=== PATIENT | male | born 1965 | race Caucasian/White ===

== ENCOUNTER 2017-05-23 18:58 | Inpatient (IN) | payer OTHER ==
[2017-05-23] VITALS (7 sets, daily range): BP systolic 129–151; BP diastolic 74–105; PULSE 70–88; RESP 16–18; TEMP 98–98.7; O2SAT 93–100
[~2017-05-23] VITALS: Ht 177.8 cm; Wt 82.5 kg
[2017-05-23] MEDS ORDERED: NITROGLYCERIN 0.4 MG SL 25 TABS/BTL SL STA (19:04)
[2017-05-23] MEDS ORDERED: ASPIRIN 81 MG CHEW TAB PO STA (19:04)
[2017-05-23] MEDS ORDERED: SODIUM CHLOR 0.9% 1000 ML INJ 1,000 ML IV ONE (19:04)
[2017-05-23] MEDS ORDERED: HEPARIN SODIUM - IV 10,000 UNITS/10 ML VIAL IV STA (19:04)
[2017-05-23] MEDS ORDERED: NITROGLYCERIN-DEXTROSE INJ 250 ML IV SCH (19:15)
[2017-05-23] MEDS ORDERED: SODIUM CHLORIDE 0.9% FLUSH 10 ML FLUSH IVF PRN (19:15)
--- NOTE | 2017-05-23 19:22 | RADRPT ---
EXAM DATE/TIME: 05/23/2017 19:05 [place] COMPARISON: No previous studies available for comparison. INDICATIONS : Stemi Alert MEDICAL HISTORY : Unobtainable SURGICAL HISTORY : Unobtainable ENCOUNTER: Initial ACUITY: 1 day PAIN SCORE: Non-responsive. LOCATION: Bilateral chest FINDINGS: A single view of the chest demonstrates the lungs to be symmetrically aerated without evidence of mas s, infiltrate or effusion. The cardiomediastinal contours are unremarkable. Osseous structures are intact. CONCLUSION: Lungs are clear. Kevin Guillen MD on May 23, 2017 at 19:20 Board Certified Radiologist. This report was verified electronically.
[2017-05-23] MEDS ORDERED: IOHEXOL 350 MG/ML 50 ML BTL (for Cath Lab) OTHER ONE (19:25)
[2017-05-23 19:29] LABS: I-STAT POTASSIUM 3.9 MMOL/L (3.5-4.9)
[2017-05-23] MEDS ORDERED: HEPARIN-NS/PF INJ 500 ML ONE ×2 (19:34→19:51)
[2017-05-23] MEDS ORDERED: HEPARIN SODIUM - IV 10,000 UNITS/10 ML VIAL ONE (19:35)
[2017-05-23] MEDS ORDERED: MIDAZOLAM HCL 2 MG/2 ML VIAL ONE (19:35)
[2017-05-23] MEDS ORDERED: BIVALIRUDIN 250 MG VIAL ONE (19:36)
[2017-05-23] MEDS ORDERED: NITROGLYCERIN INJ 5 ML ONE (19:36)
[2017-05-23 19:46] LABS: AUTOMATED NEUTROPHIL # 2.6 TH/MM3 (1.8-7.7); BASOPHIL # 0.1 TH/MM3 (0-0.2); BASOPHIL % 0.6 % (0.0-2.0); EOSINOPHIL # 0.1 TH/MM3 (0-0.4); EOSINOPHIL % 1.2 % (0.0-4.0); HEMATOCRIT 41.2 % (39.0-51.0); LYMPH % 64.1 % (9.0-44.0); LYMPHOCYTE # 5.4 TH/MM3 (1.0-4.8); MEAN CELL VOLUME 91.6 FL (80.0-100.0); MEAN CORPUSCULAR HEMOGLOBIN 30.1 PG (27.0-34.0); MEAN CORPUSCULAR HGB CONC 32.9 % (32.0-36.0); MONO % 2.8 % (0.0-8.0); NEUT % 31.3 % (16.0-70.0); PLATELET COUNT 304 TH/MM3 (150-450); WHITE BLOOD COUNT 8.4 TH/MM3 (4.0-11.0)
[2017-05-23 19:49] LABS: MAGNESIUM 2.2 MG/DL (1.5-2.5)
[2017-05-23 19:50] LABS: APTT (PATIENT) 21.1 SEC (24.3-30.1); PROTHROMBIN TIME - PATIENT 10.8 SEC (9.8-11.6)
[2017-05-23 19:51] LABS: HEMO FLAGS AUTO DIFF
--- NOTE | 2017-05-23 20:13 | PD ---
HPI Chief Complaint: STEMI Alert Time Seen by Provider: 19:03 Travel History International Travel<30 days: No Contact w/Intl Traveler<30days: No Traveled to known affect area: No History of Present Illness HPI This is a 52-year-old man who presents to the emergency department after witnessed collapse. He was at a movie theater where he collapsed convulsions. EMS was called for seizures. On fire department arrival physician bystander on scene stated patient had no pulse and CPR was started. Fire department on arrival had V. fib on the monitor. He was shocked twice with fire department. On [facility] arrival patient had return of spontaneous circulation. Patient awoke in route. He still mildly confused. He endorses confusion, denies any chest pain initial evaluation. History Past Medical History Narrative Medical Diabetes Tetanus Vaccination: > 5 Years Influenza Vaccination: No Social History Alcohol Use: Yes (OCCASIONAL BEER APPROXIMATELY 1 EVERY MONTH) Tobacco Use: No (SEE ABOVE) Allergies-Medications (Allergen,Severity, Reaction): Coded Allergies: Penicillin (Verified Allergy, Severe, 05/23/17) Reported Meds & Prescriptions Reported Meds & Active Scripts Active Active Prescriptions or Reported Medications Unobtainable Review of Systems Except as stated in HPI: all other systems reviewed are Neg Physical Exam Narrative GENERAL: Ill-appearing 52-year-old man, marked diaphoresis, confusion. SKIN: Marked diaphoresis. HEAD: Atraumatic. Normocephalic. EYES: Pupils equal and round. No scleral icterus. No injection or drainage. ENT: No nasal bleeding or discharge. Mucous membranes pink and moist. NECK: Trachea midline. No JVD. CARDIOVASCULAR: Regular rate and rhythm. No murmur appreciated. RESPIRATORY: Anxious with mild tachypnea. Coarse breath sounds. GASTROINTESTINAL: Abdomen soft, non-tender, nondistended. Hepatic and splenic margins not palpable. MUSCULOSKELETAL: No obvious deformities. No clubbing. No cyanosis. No edema. NEUROLOGICAL: Awake and alert. Mild confusion. No obvious cranial nerve deficits. Motor grossly within normal limits. Normal speech. Data Data Last Documented VS Vital Signs Date Time Temp Pulse Resp B/P Pulse Ox O2 Delivery O2 Flow Rate FiO2 05/23/17 19:27 88 18 141/83 100 Non-Rebreather 15 05/23/17 18:59 98.7 Orders Troponin I (05/23/17 19:04) Ckmb (Isoenzyme) Profile (05/23/17 19:04) Complete Blood Count With Diff (05/23/17 19:04) I-Stat Profile (05/23/17 19:04) I-Stat Creatinine (05/23/17 19:04) Calcium (05/23/17 19:04) Magnesium (Mg) (05/23/17 19:04) Prothrombin Time / Inr (Pt) (05/23/17 19:04) Act Partial Throm Time (Ptt) (05/23/17 19:04) B-Type Natriuretic Peptide (05/23/17 19:04) Chest, Single Ap (05/23/17 19:04) Electrocardiogram (05/23/17 19:04) Oxygen Administration (05/23/17 19:04) Iv Access Insert/Monitor (05/23/17 19:04) Oximetry (05/23/17 19:04) Sodium Chlor 0.9% 1000 Ml Inj (Ns 1000 M (05/23/17 19:04) Sodium Chloride 0.9% Flush (Ns Flush) (05/23/17 19:15) Aspirin Chew (Aspirin Chew) (05/23/17 19:04) Nitroglycerin Sl (Nitrostat Sl) (05/23/17 19:04) Nitroglycerin-Dextrose Inj (Nitroglyceri (05/23/17 19:15) Heparin Inj (Heparin Inj) (05/23/17 19:04) Heparin-Ns/Pf Inj (Heparin-Ns/Pf Inj) (05/23/17 19:34) Midazolam Inj (Versed Inj) (05/23/17 19:35) Fentanyl Inj (Fentanyl Inj) (05/23/17 19:35) Cardiac Catheterization (05/23/17 ) Heparin Inj (Heparin Inj) (05/23/17 19:35) Nitroglycerin Inj (Nitroglycerin Inj) (05/23/17 19:36) Bivalirudin Inj (Angiomax Inj) (05/23/17 19:36) Admit Order (Ed Use Only) (05/23/17 ) Labs Laboratory Tests Test 05/23/17 19:00 White Blood Count 8.4 TH/MM3 Red Blood Count 4.50 MIL/MM3 Hemoglobin 13.6 GM/DL Bedside Hemoglobin 13.9 G/DL Hematocrit 41.2 % Bedside Hematocrit 41.0 % Mean Corpuscular Volume 91.6 FL Mean Corpuscular Hemoglobin 30.1 PG Mean Corpuscular Hemoglobin 32.9 % Concent Red Cell Distribution Width 14.0 % Platelet Count 304 TH/MM3 Mean Platelet Volume 7.9 FL Neutrophils (%) (Auto) 31.3 % Lymphocytes (%) (Auto) 64.1 % Monocytes (%) (Auto) 2.8 % Eosinophils (%) (Auto) 1.2 % Basophils (%) (Auto) 0.6 % Neutrophils # (Auto) 2.6 TH/MM3 Lymphocytes # (Auto) 5.4 TH/MM3 Monocytes # (Auto) 0.2 TH/MM3 Eosinophils # (Auto) 0.1 TH/MM3 Basophils # (Auto) 0.1 TH/MM3 CBC Comment AUTO DIFF Prothrombin Time 10.8 SEC Prothromb Time International 1.0 RATIO Ratio Activated Partial 21.1 SEC Thromboplast Time Bedside Sodium 138 MMOL/L Bedside Potassium 3.9 MMOL/L Bedside Chloride 106 MMOL/L Bedside Blood Urea Nitrogen 25 MG/DL Bedside Creatinine 1.1 MG/DL Bedside Glucose 268 MG/DL Calcium Level 8.1 MG/DL Magnesium Level 2.2 MG/DL Total Creatine Kinase 86 U/L Troponin I 0.10 NG/ML MDM Medical Decision Making Medical Screen Exam Complete: Yes Emergency Medical Condition: Yes Interpretation(s) My review of EKG: Normal sinus rhythm at a rate of 92, slightly leftward axis, large amount of anterior precordial ST elevations with some reciprocal lateral depression suggestive of ST elevation AL. Differential Diagnosis ST elevation AL, cardiomyopathy, seizure, primary arrhythmia, other Narrative Course Medical decision making Is a 52-year-old man who presents to the emergency department following cardiac arrest in the field. Primary V. fib arrest. EKG suggestive ST elevation AL. STEMI alert was called. I spoke with Dr. Herrmann. Patient was taken to the Upsetting Machine Operator. Because it was after hours, accompanied patient to the Upsetting Machine Operator until the arrival the sheet tailer. Critical Care Narrative Aggregate critical care time was 45 minutes. Time to perform other separately billable procedures was not included in the critical care time. My time did not include minutes spent treating any other patients simultaneously or on activities that did not directly contribute to the patient's treatment. The services I provided to this patient were to treat and/or prevent clinically significant deterioration that could result in: , disability, recurrent arrhythmia, recurrent cardiac arrest, unrecognized AL. I provided critical care services requiring my management, as noted below: Chart data review, documentation time, medication orders and management, vital sign assessments/reviewing monitor data, ordering and reviewing lab tests, ordering and interpreting/reviewing x-rays and diagnostic studies, care of the patient and discussion of the patient with the admitting physicians. I also accompanied the patient to the Upsetting Machine Operator suite awaiting the arrival the sheet tailer. Diagnosis Primary Impression: STEMI (ST elevation myocardial infarction) Admitting Information Admitting Physician Requests: Admit Scripts Unable to Obtain Active Prescriptions or Reported Meds Celio Rivero MD May 23, 2017 20:13
--- NOTE | 2017-05-23 20:14 | CATHPROC ---
[facility] HIS Report Study Information Study Number Admission Scheduled Start Study Start [id number] May 23 2017 6:58PM 05/23/2017 May 23 2017 7:38PM [place] [facility] Cardiac Catheterization Admit Source Facility Department Emergency department [facility] - Dietitian Chief Physician and Clinical Staff Initial Hilton Miller Hogshead Inspector Annabelle Yeh,RN Hogshead InspectorJesus Valentin,CATIE Recorder Stan Rivas,RT(R) Scrub Kelley eBnson,ELECTRO MECHANICAL ASSEMBLER TECH2 Procedures Performed Procedure Location (Site) Vessel Name Coronary Angiograms LCA Left Coronary Coronary Angiograms RCA Right Coronary L Heart Cath LV Gram-hand inj. LV LV Ventricle Equipment Time Chrome Plater Helper Description Size Mfg Part Number Used/Scraped COPILOT VALVE, BLEEDBACK [id number] 19:47 [employer] Used CONTROL *[id number] PERCLOSE, PRO GLIDE CLOSER 20:00 [employer] FR 6 [address] *[id number] Used DEVICE TRANSDUCER, TRUWAVE [id number] 19:40 DELEON SPENCE * Used W/STOCKCOCK *[id number] MPIS-502-10.0- INTRODUCER SET, 19:40 [employer]. FR 5 SC-NT-U-SST Used MICROPUNCTURE, STIFFENED *[id number] MPIS-502-10.0- INTRODUCER SET, 19:44 [employer]. FR 5 SC-NT-U-SST Used MICROPUNCTURE, STIFFENED *[id number] *[id number] 19:40 [employer] INDUSTRIES PACK, CCL CUSTOM * Used *[id number] 19:48 MEDTRONIC/AVE EBU 3.5 Z2 GUIDE CATHETER FR 6 Used *[id number] 19:51 [employer], S.A. MEDICAL SHEATH, FR6.5 PRELUDE 11CM FR 6.5 038ACT Used *[id number] 19:40 [employer], S.A. MEDICAL WIRE, 3MMJ .035 180CM 180CM Used *[id number] 19:40 NAMIC MANIFOLD, 4 PORT * Used *[id number] 19:40 NYCOMED OMNIPAQUE, 350 MG, 150ML 150ML [id number] Used [id number] 19:40 [employer] MED[employer] BLANKET,WARM AIR CCL * Used *[id number] 19:47 TERUMO MEDICAL SHEATH, FR6 TERUMO (10CM) FR 6 Used *[id number] WIRE, RUNTHROUGH NS FLOPPY [id number] 19:50 [employer]UM[employer] MEDICAL 180CM Used .014 180CM *[id number] Equipment Model, Serial, Lot Number and Expiration Data Description Model Number Serial Number Lot Number Expiration Date INTRODUCER SET, [id number] 04-07-2020 MICROPUNCTURE, STIFFENED History: Allergies Allergy Reaction Penicillin History: Risk Factors Family History of Hypertension Dyslipidemia Previous GA Previous Heart Failure Premature CAD No No No No No Prior Valve Prior PCI Prior CABG Surgery No No No Cerebrovascular Peripheral Artery Chronic Lung On Dialysis Diabetes Diabetes Therapy Disease Disease Disease No No No No Yes Oral History: Stress Tests Stress or Imaging Studies Performed No History: Other Current Smoker Method Quit Packs a Day Years Used Pack Years No Cigarettes 10 Years Ago 1 10 10 Labs Hgb (g/dl) Hct (%) 11.60-17.00 35.00-51.00 13.9 41 Glucose (mg/dl) BUN (mg/dl) Creatinine (mg/dl) BUN:Creatinine (1:x) 74.00-106.00 7.00-18.00 0.50-1.30 10.00-20.00 268 25 1.1 22.7 Na (meq/l) K (meq/l) Cl (meq/l) 136.00-145.00 3.50-5.10 98.00-107.00 138 3.9 106 CPK-MB (ng/ML) 0.50-3.60 Not Drawn Medication Medication Total Dose (Bolus/Oral) Medication Total Dosage/Unit 1% XYLOCAINE 20 mL FENTANYL 50 mcg VERSED 2 mg Medications (Bolus/Oral) Medication Time Given Dosage/Unit Administered By Reason FENTANYL 05/23/2017 7:44:43 PM 50 mcg Herrmann-Oumar, Hilton 50 mcg FENTANYL given in lab by Herrmann-Oumar, Hilton in Left Antecubital via Peripheral IV. 1% XYLOCAINE 05/23/2017 7:45:05 PM 20 mL Herrmann-Oumar, Hilton 20 mL 1% XYLOCAINE given in lab by Herrmann-Oumar, Hilton in Right Groin via Subcutaneous. VERSED 05/23/2017 8:09:07 PM 2 mg Herrmann-Oumar, Hilton 2 mg VERSED given in lab by Herrmann-Oumar, Hilton in Left Antecubital via Peripheral IV. Medication (Drip) Medication Time Given Dosage/Unit Concentration/Unit Diluent (ml) Solution IV Solutions 05/23/2017 7:40:45 PM 0 mL (IV) 500 NaCl .9 Patient arrived on IV Solutions in Left Antecubital via Peripheral IV. Pump/Drip Flow = 20 ml/hr usin g NaCl .9. NITROGLYCERIN DRIP 05/23/2017 7:42:31 PM 15 mcg/min 50 mg 250 D5W Patient arrived on 15 mcg/min NITROGLYCERIN DRIP in Right Antecubital via Peripheral IV. Pump/Drip Fl ow = 4.5 ml/hr using D5W with a concentration of 50 mg in 250 ml. Initial Case Assessment Cardiovascular HR Rhythm NIBP Chest Pain 73 Irregular 148/87 2 Edema Present Skin color Skin None Normal Warm Dry Circulatory - Right Pulses Dorsalis Pedis Femoral 3 3 Scale (0,1,2,3,4,d) Circulatory - Left Pulses Dorsalis Pedis Femoral 3 3 Scale (0,1,2,3,4,d) Neurological State Oriented to time-place- Alert Moves all extremities person Respiration - General Respiration Rate SpO2 (%) O2 (lpm) (B/min) 19 98 15 Final Case Assessment Cardiovascular HR Rhythm NIBP Chest Pain 77 Sinus 135/77 0 Edema Present Skin color Skin None Normal Warm Dry Circulatory - Right Pulses Dorsalis Pedis Femoral 3 3 Scale (0,1,2,3,4,d) Circulatory - Left Pulses Dorsalis Pedis Femoral 3 3 Scale (0,1,2,3,4,d) Neurological State Oriented to time-place- Alert Moves all extremities person Respiration - General Respiration Rate SpO2 (%) O2 (lpm) (B/min) 16 93 0 Chronological Log Time Study Chronological Log 19:25:40 Patient arrived via Bed. 19:35:38 MD arrived. Vitals capture started with the following parameters, Patient=Adult, Interval=5 min, Initial Pr tslorw=835 mmHg, 19:38:24 Deflation Rate=5 mmHg, Cuff placed on Right Arm 19:38:50 HR=75 bpm, QDRG=423/87 mmhg, SpO2=97.0 %, Resp=19 B/min, Pain=2, Naseem=10, Serrano=2 19:39:16 Patient Name, D.O.B, / Armband Verified By R.N. 19:39:17 Consent signed by the physician and the patient and verified by the Dietitian Chief staff. 19:39:18 Pre-op and post- op instructions given; patient acknowledges understanding of instructions. 19:39:19 Verbal Stimulation=2 Physical Stimulation=2 Airway=2 Respiration=2 TOTAL=8. (0=absent, 1=li mited, 2=present) 19:39:20 Presedation assessment performed by Dietitian Chief RN. 19:39:28 Patient has been NPO for More than 6Hrs. 19:39:28 Skin Breakdown- none per patient. 19:40:39 Patient Warmer Placed on the Table. 19:40:42 James Prominences Protected 19:40:43 A # 18 IV was noted in the Antecubital (left). Grade = 0 19:40:45 Patient arrived on IV Solutions in Left Antecubital via Peripheral IV. Pump/Drip Flow = 20 ml/hr using NaCl .9. 19:40:46 History and physical on the chart or being dictated. Assessment: Initial Case, HR=73 BPM, Rhythm=Irregular, VFVJ=266/87 mmhg, Chest Pain=2, Edema=No ne, Color=Normal, Skin = Warm, Dry Right Pulses: Hector Ped=3, Femoral=3 19:40:47 Left Pulses: Hector Ped=3, Femoral=3 Neurological: State=Alert, Ox3, JOHNSON Respiration: Resp=19 B/min, SpO2=98 %, O2=15 lpm 19:41:39 Bilateral groins prepped with 2% chlorhexidine, and with a 3 min. waiting time. 19:41:59 A # 18 IV was noted in the Antecubital (right). Grade = 0 Patient arrived on 15 mcg/min NITROGLYCERIN DRIP in Right Antecubital via Peripheral IV. Pump/D rip Flow = 4.5 19:42:31 ml/hr using D5W with a concentration of 50 mg in 250 ml. 19:43:12 HR=73 bpm, OQYY=530/81 mmhg, SpO2=97.0 %, Resp=13 B/min, Pain=2, Naseem=10, Serrano=2 Time Out. Correct patient, correct procedure,correct physician, ,power injector loaded or not l oaded with contrast with 19:44:25 surgical team present. Time Out Concurred by MD, individual staff and PILE DRIVING NOZZLEMAN in procedure 19:44:26 Case Start 19:44:42 Nitro off. 19:44:43 50 mcg FENTANYL given in lab by Tere, Hilton in Left Antecubital via Peripheral IV. 19:45:05 20 mL 1% XYLOCAINE given in lab by Tere, Hilton in Right Groin via Subcutaneous. 19:46:26 Pressure channel 1 zeroed. 19:46:27 Access site was Right Femoral Artery. 19:47:07 A sheath was advanced into the Fem Art (right) using the Percutaneous technique. A JR 4.0 INFINITI CATHETER FR 5 was advanced over a wire. OMNIPAQUE, 350 MG, 150ML 150ML was us ed for 19:47:52 injections. Recorded Pressure: LV, HR=73, Condition=Condition 1 19:48:08 (Left Ventricle) LV 125/8/21 19:48:13 HR=71 bpm, USAA=740/83 mmhg, SpO2=97.0 %, Resp=11 B/min, Pain=2, Naseem=10, Serrano=2 19:48:29 The LV was manually injected with 8 cc's and visualized. OMNIPAQUE, 350 MG, 150ML 150ML use d. Recorded Pressure: LV, Ao, HR=73, Condition=Condition 1 19:48:50 (Left Ventricle) LV 127/7/20, (Aorta) Ao 127/72/99 19:49:29 The RCA was injected and visualized at various angles. OMNIPAQUE, 350 MG, 150ML 150ML used . 19:49:52 Catheter was removed A EBU 3.5 Z2 GUIDE CATHETER FR 6 was advanced over a wire. OMNIPAQUE, 350 MG, 150ML 150ML was u sed for 19:50:42 injections. Recorded Pressure: Ao, HR=71, Condition=Condition 1 19:51:20 (Aorta) Ao 129/71/97 19:51:26 The LCA was injected and visualized at various angles. OMNIPAQUE, 350 MG, 150ML 150ML used . 19:53:12 HR=70 bpm, SGIS=547/72 mmhg, SpO2=98.0 %, Resp=13 B/min, Pain=2, Naseem=10, Serrano=2 19:58:13 HR=73 bpm, QSBM=475/76 mmhg, SpO2=98.0 %, Resp=21 B/min, Pain=2, Naseem=10, Serrano=2 19:59:24 An injection in the Fem Art (right) was made through the SHEATH, FR6 TERUMO (10CM) FR 6. 20:00:41 PERCLOSE, PRO GLIDE CLOSER DEVICE FR 6 placement in the Fem Art (right) 20:01:48 Case End 20:01:51 No case complications noted. 20:01:53 Cine recording checked. 20:03:09 Bedside Report will be given. 20:03:14 HR=78 bpm, UXRN=336/77 mmhg, SpO2=93.0 %, Resp=31 B/min, Pain=2, Naseem=10, Serrano=2 20:03:28 A Left Heart Cath was performed. Assessment: Final Case, HR=77 BPM, Rhythm=Sinus, HESL=601/77 mmhg, Chest Pain=0, Edema=None, Color=Normal, Skin = Warm, Dry Right Pulses: Hector Ped=3, Femoral=3 20:03:32 Left Pulses: Hector Ped=3, Femoral=3 Neurological: State=Alert, Ox3, JOHNSON Respiration: Resp=16 B/min, SpO2=93 %, O2=0 lpm 20:08:11 HR=79 bpm, LCIX=746/80 mmhg, SpO2=94.0 %, Resp=18 B/min, Pain=2, Naseem=10, Serrano=2 20:09:07 2 mg VERSED given in lab by Hilton Carranza in Left Antecubital via Peripheral IV. 20:12:59 Patient moved to [facility] End Study - Contrast Media Used In Study Contrast Total Opened (mL) Total Used (mL) Total Wasted (mL) Omnipaque 150 45 105 End Study - Maximum Contrast Load Max Contrast Load (mL) 318.2 End Study - Radiation Exposure Fluoro Time (minutes) 2.2 End Study - Patient Disposition Complications Transferred To Interventional Outcome No Telemetry Bed No attempt made
[2017-05-23] MEDS ORDERED: ATROPINE SULFATE 1 MG/ML VIAL IV PRN (20:15)
[2017-05-23] MEDS ORDERED: ONDANSETRON HCL 4 MG/2 ML VIAL IV PRN (20:15)
[2017-05-23 20:21] LABS: BANDS 4 % (0-6); BASOPHILS 1 % (0-2); EOSINOPHILS 1 % (0-4); POLYS (SEG NEUTROPHILS) 20 % (16-70); WBC DIFF SAMPLE 100
[2017-05-23 20:24] LABS: SCAN/DIFF FINAL DIFF MANUAL
--- NOTE | 2017-05-23 20:35 | MB ---
cc: STEPHANY ZIMMER DATE OF CONSULTATION: 05/23/2017. REASON FOR CONSULTATION: STEMI alert. HISTORY OF PRESENT ILLNESS: 52-year-old male with past medical history of diabetes mellitus, smoking and otherwise that presented to the emergency department via EMS after having sudden collapse at the movie theater. The patient was given CPR. EMS [facility] found him ventricular fibrillation. He received two shocks and was successfully resuscitated. He was then brought into the emergency department for further management and evaluation. Initial 12 lead EKG revealed normal sinus rhythm with S-T elevations in the anterior leads and depressions in the lateral leads suggestive of myocardial injury for which a STEMI alert was activated. Interventional cardiology has been consulted for further management and evaluation. In the emergency department, the patient was started on a nitro drip as well as a heparin bolus. He is complaining of mild chest discomfort. He denies shortness of breath, paroxysmal nocturnal dyspnea, leg edema, syncope , nausea or vomiting, diarrhea or bleeding issues. REVIEW OF SYSTEMS: Negative except for that mentioned in the history of present illness. PAST MEDICAL HISTORY: None. PAST SURGICAL HISTORY: None. ALLERGIES: PENICILLIN. SOCIAL HISTORY: He is a former smoker. He denies illicit drug use or alcohol abuse. FAMILY HISTORY: No family history of premature coronary artery disease. PHYSICAL EXAMINATION: VITAL SIGNS: Temperature is 98, respiratory rate 20, heart rate 88, blood pressure 141/83, 02 saturation 100% on nonrebreather. GENERAL: He is awake, alert and oriented times three in no acute distress. NECK: No jugular venous distention. No carotid bruits. HEART: Regular rate and rhythm. No murmurs, rubs or gallops. LUNGS: Clear to auscultation bilaterally. No wheezes, rales or rhonchi. ABDOMEN: The abdomen is soft, nontender and nondistended. Positive bowel sounds. EXTREMITIES: No cyanosis or edema. Pulses throughout. DATA: CBC: Hemoglobin 13, hematocrit 41, platelet count 304,000. INR of 1. Chemistries: Sodium 138, potassium 3.9, BUN 25, creatinine 1.1, calcium 8.1. Troponin 0.10. BNP is 52. IMAGING STUDIES: Chest x-ray unremarkable. EKGS: EKG shows sinus rhythm with minimal S-T elevation in the anterior leads and significant depressions in the lateral leads. ASSESSMENT AND PLAN: 52-year-old male with cardiac risk factors that include diabetes, age and smoking who presents s/p 0ventricular fibrillation arrest. EKG in the emergency department suggestive of myocardial injury. The patient is still complaining of some mild chest discomfort. Given the patient's presentation and symptoms, I think it would be reasonable to take him for emergent left heart catheterization for the possibility of primary percutaneous coronary intervention in the setting of a STEMI. The risks and benefits of left heart catheterization and possible intervention include but are not limited to infection, bleeding acute kidney injury, neurovascular trauma, stroke, emergent bypass surgery and have been explained to the patient. The patient understands the risks and he is willing to proceed. RECOMMENDATIONS: 1. Keep NPO for emergent left heart catheterization with possible percutaneous coronary intervention today. 2. Continue nitro and heparin drips. Thank you for the opportunity to take part in the care of this patient. Further management to be determined. MD BECKY Huynh/JCC /8:10 PM /8:21 PM ANN
--- NOTE | 2017-05-23 20:43 | MA ---
cc: STEPHANY ZIMMER DATE: 05/23/2017. PROCEDURE PERFORMED: 1. Left heart catheterization. 2. Selective right and left coronary angiography. 3. Left ventriculogram. 4. Selective right common femoral artery angiography. INDICATIONS FOR THE PROCEDURE: Ventricular fibrillation arrest / S-T segment elevation myocardial infarction. DESCRIPTION OF THE PROCEDURE IN DETAIL: Consent signed. The patient was brought into the cardiac cathode builder in a fasting state. The right groin was prepped and draped in the sterile fashion using 1% lidocaine for local anesthesia and a micropuncture kit. A 6-Chadian sheath was inserted into the right common femoral artery. A right common femoral artery angiography was performed to confirm position of the sheath. Then selective right and left coronary angiography was performed with a JR-4 diagnostic catheters and an EBU 3.5 6French guide. Angiography was taken in multiple views. Then the JR-4 diagnostic catheter was introduced into the left ventricle over a wire followed by pressure recordings, left ventriculogram and pullback. The patient tolerated the procedure well without complications. Estimated blood loss less than 30 mL. Total contrast used was 70 mL. The right groin access site was closed with a Perclose. RESULTS: The left ventricular end diastolic pressure was 20. There was no gradient upon pullback from the left ventricle to the aorta. Left ventriculogram revealed a symmetrically ryder ventricle with an estimated ejection fraction of 50%. ANGIOGRAPHIC RESULTS: 1. Right coronary artery: The right coronary artery is A dominant vessel giving off the PDA as well as a PLB branch. the right coronary artery has minimal luminal irregularities and mild calcification proximally and has a 10% lesion in its mid-segment. The PDA has minimal luminal irregularities and distally there is 30% lesion. However, the remainder of the lesion is unremarkable. 2. Left main: The left main is short and patent with JOYCE III flow. 3. Left anterior descending: The left anterior descending is a transapical vessel. It is mildly calcified and has minimal luminal irregularities; however , no significant obstructive coronary artery disease. The left anterior descending is giving off two diagonal vessels which are also patent with nonobstructive coronary artery disease. 4. Left circumflex artery: The left circumflex artery is patent with JOYCE III flow and nonobstructive coronary artery disease. It is giving off one prominent OM vessel, which is patent with JOYCE III flow and nonobstructive coronary artery disease. There also an AV groove segment of the circumflex, which is patent with JOYCE III flow. CONCLUSIONS: 1. Nonobstructive coronary artery disease. 2. Preserved left ventricular systolic function. 3. Diastolic dysfunction. RECOMMENDATIONS: 1. [facility]. 2. He should be consulted to the hospitalist service today for medical management. 3. Continue aggressive medical management for primary prevention of coronary artery disease. 4. He should be consulted to electrophysiology on Thursday for EPS evaluation possible AICD placement if no reversible causes for his arrest are identified. 5. Start Amiodarone drip 6. 2Dechocardiogram MD BECKY Huynh/GLEN /8:16 PM /8:32 PM ANN
[2017-05-23] MEDS ORDERED: AMIODARONE 150 MG/D5W 97 ML BOLUS 10 MINUTES IV ONE ×2 (21:30)
[2017-05-24] VITALS (26 sets, daily range): BP systolic 123–150; BP diastolic 73–92; PULSE 64–80; RESP 16–18; TEMP 97.9–98.6; O2SAT 95–99
[2017-05-24] MEDS: AMIODARONE INJ 450 MG in D5W (EXCEL BAG) 241 ML IV SCH ×3 (00:07→21:52)
[2017-05-24 01:06] LABS: AMPHETAMINE, URINE NEG (NEG); BARBITURATES, URINE NEG (NEG); COCAINE, URINE NEG (NEG)
[2017-05-24] MEDS ORDERED: TEMAZEPAM 15 MG CAP PO PRN (08:30)
[2017-05-24] MEDS ORDERED: GLUCAGON 1 MG/ML VIAL OTHER PRN (08:30)
[2017-05-24] MEDS ORDERED: MORPHINE SULFATE 4 MG/ML INJ IV PUSH PRN (08:30)
[2017-05-24] MEDS ORDERED: DEXTROSE 50% IN WATER 50 ML VIAL(D50) IV PRN (08:30)
[2017-05-24] MEDS ORDERED: ACETAMINOPHEN/HYDROcodone 325 MG/5 MG TAB PO PRN (08:30)
[2017-05-24] MEDS ORDERED: DOCUSATE SODIUM 100 MG CAP PO PRN (08:30)
[2017-05-24] MEDS ORDERED: ACETAMINOPHEN 325 MG TAB PO PRN (08:30)
[2017-05-24] MEDS ORDERED: ONDANSETRON HCL 4 MG/2 ML VIAL IV PRN (08:30)
[2017-05-24] MEDS: ACETAMINOPHEN/HYDROcodone 325 MG/7.5 MG TAB PO PRN ×2 (08:57→21:41)
--- NOTE | 2017-05-24 10:13 | PD.CONS ---
HPI Service [facility] Consult Requested By Cardiology Reason for Consult Medical management Primary Care Physician Unknown Diagnoses: History of Present Illness 52-year-old male with a history of diabetes type 2 was brought to the ED yesterday by EMS after patient having sudden collapse at a movie theater. Initially patient received CPR, and when EMS was call patient was found to be in ventricular fibrillation for which he received 2 shocks and was successfully resuscitated. Patient was there with him state patient may have passed out for more than 20 minutes. Patient denies any symptoms of chest pain, shortness of breath, heart palpitation or dizziness leading to his collapse. The ED, patient was found to be ST elevation MO for which he was started on heparin and nitroglycerin drip. Cardiology was call secondary to STEMI alert. During my exam, patient appears stable and denies any chest pain or heart palpitation. He had a prior episode of chest pain in 2005 for which he had a negative stress test. Review of Systems Except as stated in HPI: all other systems reviewed are Neg Past Family Social History Allergies: Coded Allergies: Penicillin (Verified Allergy, Severe, 05/23/17) Past Medical History Diabetes History of recurrent pancreatitis Past Surgical History Appendectomy Reported Medications Sliding-scale insulin Family History Mother had CHF at age 56, pacemaker implantation however from complications Father had diabetes type 2 Social History Alcohol Use: Yes (OCCASIONAL BEER APPROXIMATELY 1 EVERY MONTH) Tobacco Use: No (SEE ABOVE) Physical Exam Vital Signs Vital Signs Date Time Temp Pulse Resp B/P Pulse Ox O2 Delivery O2 Flow Rate FiO2 05/24/17 10:04 66 05/24/17 09:58 16 05/24/17 09:57 67 05/24/17 08:45 74 05/24/17 08:45 98.4 69 18 123/73 99 05/24/17 06:06 72 05/24/17 05:43 73 05/24/17 04:35 74 05/24/17 03:20 97.9 75 16 137/76 95 05/24/17 03:00 72 05/24/17 02:00 80 05/24/17 01:20 74 05/24/17 00:00 74 05/23/17 23:15 72 05/23/17 23:15 98.3 77 18 129/74 93 05/23/17 22:00 72 05/23/17 21:00 71 05/23/17 20:20 98.0 78 16 151/86 95 05/23/17 20:00 70 05/23/17 19:27 88 18 141/83 100 Non-Rebreather 15 05/23/17 19:08 100 Non-Rebreather 15 05/23/17 19:04 87 18 100 Non-Rebreather 15 05/23/17 18:59 98.7 87 18 144/105 100 Physical Exam GENERAL: This is a well-nourished, well-developed patient, in no apparent distress. SKIN: No rashes, ecchymoses or lesions. Cool and dry. HEAD: Atraumatic. Normocephalic. No temporal or scalp tenderness. EYES: Pupils equal round and reactive. Extraocular motions intact. No scleral icterus. No injection or drainage. ENT: Nose without bleeding, purulent drainage or septal hematoma. Throat without erythema, tonsillar hypertrophy or exudate. Uvula midline. Airway patent. NECK: Trachea midline. No JVD or lymphadenopathy. Supple, nontender, no meningeal signs. CARDIOVASCULAR: Regular rate and rhythm without murmurs, gallops, or rubs. RESPIRATORY: Clear to auscultation. Breath sounds equal bilaterally. No wheezes , rales, or rhonchi. GASTROINTESTINAL: Abdomen soft, non-tender, nondistended. No hepato-splenomegaly , or palpable masses. No guarding. MUSCULOSKELETAL: Extremities without clubbing, cyanosis, or edema. No joint tenderness, effusion, or edema noted. No calf tenderness. Negative Homans sign bilaterally. NEUROLOGICAL: Awake and alert. Cranial nerves II through XII intact. Motor and sensory grossly within normal limits. Five out of 5 muscle strength in all muscle groups. Normal speech. Laboratory Laboratory Tests Test 05/23/17 05/23/17 19:00 23:59 White Blood Count 8.4 Red Blood Count 4.50 Hemoglobin 13.6 Bedside Hemoglobin 13.9 Hematocrit 41.2 Bedside Hematocrit 41.0 Mean Corpuscular Volume 91.6 Mean Corpuscular Hemoglobin 30.1 Mean Corpuscular Hemoglobin 32.9 Concent Red Cell Distribution Width 14.0 Platelet Count 304 Mean Platelet Volume 7.9 Neutrophils (%) (Auto) 31.3 Lymphocytes (%) (Auto) 64.1 Monocytes (%) (Auto) 2.8 Eosinophils (%) (Auto) 1.2 Basophils (%) (Auto) 0.6 Neutrophils # (Auto) 2.6 Lymphocytes # (Auto) 5.4 Monocytes # (Auto) 0.2 Eosinophils # (Auto) 0.1 Basophils # (Auto) 0.1 CBC Comment AUTO DIFF Differential Total Cells 100 Counted Neutrophils % (Manual) 20 Band Neutrophils % 4 Lymphocytes % 71 Monocytes % 3 Eosinophils % 1 Basophils % 1 Neutrophils # (Manual) 2.0 Differential Comment FINAL DIFF MANUAL Prothrombin Time 10.8 Prothromb Time International 1.0 Ratio Activated Partial 21.1 Thromboplast Time Bedside Sodium 138 Bedside Potassium 3.9 Bedside Chloride 106 Bedside Blood Urea Nitrogen 25 Bedside Creatinine 1.1 Bedside Glucose 268 Calcium Level 8.1 Magnesium Level 2.2 Total Creatine Kinase 86 Troponin I 0.10 B-Type Natriuretic Peptide 52 Urine Opiates Screen NEG Urine Barbiturates Screen NEG Urine Amphetamines Screen NEG Urine Benzodiazepines Screen POS Urine Cocaine Screen NEG Urine Cannabinoids Screen NEG Result Diagram: 05/23/17 1900 Assessment and Plan Problem List: (1) Cardiac arrest with ventricular fibrillation ICD Code: I46.9 Status: Acute (2) STEMI (ST elevation myocardial infarction) ICD Code: I21.3 Status: Acute (3) Nonobstructive atherosclerosis of coronary artery ICD Code: I70.91 Status: Acute (4) Diabetes mellitus, type II ICD Code: E11.9 Status: Acute Assessment and Plan 52-year-old man with ST elevation MO Cardiac arrest due to ventricular fibrillation Nonobstructive atherosclerosis of coronary artery Status post emergent catheterization Appreciate input from cardiology Awaiting for electrophysiology for evaluation for possible external defibrillator placement Check lipid profile Diabetes type 2 Continue sliding scale insulin Check hemoglobin A1c DVT prophylaxis: SCDs Code Status Full code Discussed Condition With Patient, Gray Hudson MD May 24, 2017 10:13
[2017-05-24] MEDS: INSULIN ASPART SUPPLEMENTAL SCALE SQ SCH ×3 (11:00→21:44)
[2017-05-24 11:25] LABS: AUTOMATED NEUTROPHIL # 6.9 TH/MM3 (1.8-7.7); BASOPHIL % 0.4 % (0.0-2.0); EOSINOPHIL % 0.4 % (0.0-4.0); HEMATOCRIT 39.6 % (39.0-51.0); HEMO FLAGS DIFF FINAL; LYMPH % 19.5 % (9.0-44.0); LYMPHOCYTE # 1.9 TH/MM3 (1.0-4.8); MEAN CELL VOLUME 89.7 FL (80.0-100.0); MEAN CORPUSCULAR HEMOGLOBIN 29.8 PG (27.0-34.0); MEAN CORPUSCULAR HGB CONC 33.2 % (32.0-36.0); MONO % 9.7 % (0.0-8.0); PLATELET COUNT 244 TH/MM3 (150-450); RED BLOOD COUNT 4.41 MIL/MM3 (4.50-5.90); RED CELL DISTRIBUTION WIDTH 14.2 % (11.6-17.2); WHITE BLOOD COUNT 9.9 TH/MM3 (4.0-11.0)
[2017-05-24 11:53] LABS: POTASSIUM 3.6 MEQ/L (3.5-5.1)
--- NOTE | 2017-05-24 15:32 | EKG ---
Date Performed: 05/23/2017 Time Performed: 18:58:33 PTAGE: 52 years EKG: LEFT AXIS DEVIATION ATRIAL ABNORMALITY MARKED ST DEPRESSION IN LEADS V4-V6 OF 3-4MM, COMPAT IBLE WITH ISCHEMIA OR NONTRANSMURAL INJURY THERE IS SOME J-POINT ELEVATION IN V1-V3 ASSOCIATED WITH F AIRLY LARGE QRS VOLTAGE. THESE CHANGES ARE NONSPECIFIC. Compared to PREVIOUS TRACING , the marked ST depression anterolaterally is new. Follow up tracings an d clinical correlation strongly recommended. ABNORMAL ECG INTERPRETATION BASED ON A DEFAULT AGE OF 40 YEARS PREVIOUS TRACIN07/17/2006 02.46 DOCTOR: Max Machuca Interpretating Date/Time 05/24/2017 15:30:52
--- NOTE | 2017-05-24 18:32 | PD.CARD.PN ---
Subjective Subjective Remarks no cv complaints no overnight events Objective Medications Current Medications Medications (Trade) Dose Ordered Sig/Max Route Start Time Stop Time Status Last Admin Sodium Chloride 2 ml 2 ml UNSCH PRN IVF 05/23/17 19:15 (Nitroglycerin-Dextrose Inj) 250 ml @ 0 mls/hr TITRATE IV 05/23/17 19:15 05/23/17 19:25 (Atropine Inj) 0.5 mg UNSCH PRN IV 05/23/17 20:15 Ondansetron HCl 4 mg 4 mg Q4H PRN IV 05/23/17 20:15 (Cordarone Inj/ D5W ([place]) Inj) 250 ml @ 0 mls/hr CONTINUOUS IV 05/23/17 21:30 05/24/17 07:21 (D50w (Vial) Inj) 50 ml UNSCH PRN IV 05/24/17 08:30 (Glucagon Inj) 1 mg UNSCH PRN OTHER 05/24/17 08:30 (Tylenol) 650 mg Q4H PRN PO 05/24/17 08:30 (Zofran Inj) 4 mg Q6H PRN IV 05/24/17 08:30 (Colace) 100 mg BID PRN PO 05/24/17 08:30 (Restoril) 15 mg HS PRN PO 05/24/17 08:30 (Peerless 5-325 Mg) 1 tab Q4H PRN PO 05/24/17 08:30 (Peerless 7.5-325 Mg) 1 tab Q4H PRN PO 05/24/17 08:30 05/24/17 08:57 (Morphine Inj) 2 mg Q6H PRN IV PUSH 05/24/17 08:30 Vital Signs / I&O Vital Signs Date Time Temp Pulse Resp B/P Pulse Ox O2 Delivery O2 Flow Rate FiO2 05/24/17 18:12 69 05/24/17 17:08 66 05/24/17 16:29 18 05/24/17 16:26 68 05/24/17 15:16 98.4 67 18 141/92 98 05/24/17 15:16 68 05/24/17 14:23 71 05/24/17 13:03 70 05/24/17 12:10 65 05/24/17 11:15 98.5 65 18 141/80 97 05/24/17 11:15 74 05/24/17 10:04 66 05/24/17 09:58 16 05/24/17 09:57 67 05/24/17 08:45 74 05/24/17 08:45 98.4 69 18 123/73 99 05/24/17 06:06 72 05/24/17 05:43 73 05/24/17 04:35 74 05/24/17 03:20 97.9 75 16 137/76 95 05/24/17 03:00 72 05/24/17 02:00 80 05/24/17 01:20 74 05/24/17 00:00 74 05/23/17 23:15 72 05/23/17 23:15 98.3 77 18 129/74 93 05/23/17 22:00 72 05/23/17 21:00 71 05/23/17 20:20 98.0 78 16 151/86 95 05/23/17 20:00 70 05/23/17 19:27 88 18 141/83 100 Non-Rebreather 05/23/17 19:08 100 Non-Rebreather 05/23/17 19:04 87 18 100 Non-Rebreather 05/23/17 18:59 98.7 87 18 144/105 100 I/O 05/23/17 05/23/17 05/23/17 05/24/17 05/24/17 05/24/17 07:00 15:00 23:00 07:00 15:00 23:00 Intake Total 560 ml 650 ml Output Total 2740 ml 300 ml Balance -2180 ml 350 ml Intake Oral 240 ml 480 ml IV Total 320 ml 170 ml Output Urine Total 2740 ml 300 ml Bladder Scan Volume Amount 1000 ml 602 ml # Voids 3 # Bowel Movements 0 Physical Exam GENERAL: Well-nourished, well-developed patient. SKIN: Warm and dry. HEAD: Normocephalic. EYES: No scleral icterus. No injection or drainage. NECK: Supple, trachea midline. No JVD or lymphadenopathy. CARDIOVASCULAR: Regular rate and rhythm without murmurs, gallops, or rubs. RESPIRATORY: Breath sounds equal bilaterally. No accessory muscle use. GASTROINTESTINAL: Abdomen soft, non-tender, nondistended. EXTREMITIES: No cyanosis, or edema. NEUROLOGICAL: Awake, alert, and oriented x 3. Non-focal. Laboratory Laboratory Tests Test 05/23/17 05/23/17 05/24/17 19:00 23:59 10:47 White Blood Count 8.4 TH/MM3 9.9 TH/MM3 Red Blood Count 4.50 MIL/MM3 4.41 MIL/MM3 Hemoglobin 13.6 GM/DL 13.1 GM/DL Bedside Hemoglobin 13.9 G/DL Hematocrit 41.2 % 39.6 % Bedside Hematocrit 41.0 % Mean Corpuscular Volume 91.6 FL 89.7 FL Mean Corpuscular Hemoglobin 30.1 PG 29.8 PG Mean Corpuscular Hemoglobin 32.9 % 33.2 % Concent Red Cell Distribution Width 14.0 % 14.2 % Platelet Count 304 TH/MM3 244 TH/MM3 Mean Platelet Volume 7.9 FL 7.9 FL Neutrophils (%) (Auto) 31.3 % 70.0 % Lymphocytes (%) (Auto) 64.1 % 19.5 % Monocytes (%) (Auto) 2.8 % 9.7 % Eosinophils (%) (Auto) 1.2 % 0.4 % Basophils (%) (Auto) 0.6 % 0.4 % Neutrophils # (Auto) 2.6 TH/MM3 6.9 TH/MM3 Lymphocytes # (Auto) 5.4 TH/MM3 1.9 TH/MM3 Monocytes # (Auto) 0.2 TH/MM3 1.0 TH/MM3 Eosinophils # (Auto) 0.1 TH/MM3 0.0 TH/MM3 Basophils # (Auto) 0.1 TH/MM3 0.0 TH/MM3 CBC Comment AUTO DIFF DIFF FINAL Differential Total Cells 100 Counted Neutrophils % (Manual) 20 % Band Neutrophils % 4 % Lymphocytes % 71 % Monocytes % 3 % Eosinophils % 1 % Basophils % 1 % Neutrophils # (Manual) 2.0 TH/MM3 Differential Comment FINAL DIFF MANUAL Prothrombin Time 10.8 SEC Prothromb Time International 1.0 RATIO Ratio Activated Partial 21.1 SEC Thromboplast Time Bedside Sodium 138 MMOL/L Bedside Potassium 3.9 MMOL/L Bedside Chloride 106 MMOL/L Bedside Blood Urea Nitrogen 25 MG/DL Bedside Creatinine 1.1 MG/DL Bedside Glucose 268 MG/DL Calcium Level 8.1 MG/DL 8.4 MG/DL Magnesium Level 2.2 MG/DL Total Creatine Kinase 86 U/L Troponin I 0.10 NG/ML B-Type Natriuretic Peptide 52 PG/ML Urine Opiates Screen NEG Urine Barbiturates Screen NEG Urine Amphetamines Screen NEG Urine Benzodiazepines Screen POS Urine Cocaine Screen NEG Urine Cannabinoids Screen NEG Sodium Level 137 MEQ/L Potassium Level 3.6 MEQ/L Chloride Level 106 MEQ/L Carbon Dioxide Level 23.0 MEQ/L Anion Gap 8 MEQ/L Blood Urea Nitrogen 25 MG/DL Creatinine 1.05 MG/DL Estimat Glomerular Filtration 75 ML/MIN Rate Random Glucose 182 MG/DL Imaging Last Impressions Chest X-Ray 05/23/17 1904 Signed Impressions: Service Date/Time: Thursday, May 23, 2017 19:05 - CONCLUSION: Lungs are clear. Kevin Guillen MD Assessment and Plan Problem List: (1) Cardiac arrest with ventricular fibrillation Assessment and Plan: s/p LHC- nonobstructive CAD with preserved LV systolic function Recommendations: 1. Cont Amiodarone 2. Dr. Jimenez Consult in AM for EPS/AICD placement 3. Ashkan (2) Diabetes mellitus, type II (3) Ventricular fibrillation Hilton Carranza MD May 24, 2017 18:32
[2017-05-25] VITALS (27 sets, daily range): BP systolic 131–155; BP diastolic 83–89; PULSE 61–71; RESP 16–18; TEMP 97.6–99.2; O2SAT 97–99
[2017-05-25 06:05] LABS: HDL CHOLESTEROL 42.3 MG/DL (40.0-60.0); LDL CHOLESTEROL 118 MG/DL (0-99)
[2017-05-25] MEDS: INSULIN ASPART SUPPLEMENTAL SCALE SQ SCH ×4 (06:25→20:52)
--- NOTE | 2017-05-25 08:07 | HHI.PR ---
Subjective Remarks Follow-up Cardiac arrest due to ventricular fibrillation/ST elevation PR 05/25/17-patient seen and examined, uneventful night denies any chest pain or shortness of breath as well as heart palpitation. Objective Vitals Vital Signs Date Time Temp Pulse Resp B/P Pulse Ox O2 Delivery O2 Flow Rate FiO2 05/25/17 07:30 99.2 70 16 147/83 97 05/25/17 07:00 61 05/25/17 06:00 62 05/25/17 05:00 65 05/25/17 04:00 61 05/25/17 03:00 68 05/25/17 03:00 97.6 66 16 131/87 98 05/25/17 02:00 65 05/25/17 01:00 61 05/25/17 00:00 63 05/24/17 23:45 98.6 69 16 138/81 99 05/24/17 23:00 64 05/24/17 22:00 66 05/24/17 21:00 68 05/24/17 20:00 68 05/24/17 19:50 98.1 70 18 150/91 98 05/24/17 19:00 71 05/24/17 18:12 69 05/24/17 17:08 66 05/24/17 16:29 18 05/24/17 16:26 68 05/24/17 15:16 98.4 67 18 141/92 98 05/24/17 15:16 68 05/24/17 14:23 71 05/24/17 13:03 70 05/24/17 12:10 65 05/24/17 11:15 98.5 65 18 141/80 97 05/24/17 11:15 74 05/24/17 10:04 66 05/24/17 09:58 16 05/24/17 09:57 67 05/24/17 08:45 74 05/24/17 08:45 98.4 69 18 123/73 99 I/O 05/24/17 05/24/17 05/24/17 05/25/17 05/25/17 05/25/17 07:00 15:00 23:00 07:00 15:00 23:00 Intake Total 560 ml 650 ml 187 ml Output Total 2740 ml 300 ml 350 ml Balance -2180 ml 350 ml -163 ml Intake Oral 240 ml 480 ml IV Total 320 ml 170 ml 187 ml Output Urine Total 2740 ml 300 ml 350 ml Bladder Scan Volume Amount 602 ml # Voids 3 1 # Bowel Movements 0 1 Result Diagram: 05/24/17 1047 05/24/17 1047 Imaging Last Impressions Chest X-Ray 05/23/17 1904 Signed Impressions: Service Date/Time: Tuesday, May 23, 2017 19:05 - CONCLUSION: Lungs are clear. Kevin Guillen MD Objective Remarks GENERAL: NAD SKIN: Warm and dry. HEAD: Normocephalic. EYES: No scleral icterus. No injection or drainage. NECK: Supple, trachea midline. No JVD or lymphadenopathy. CARDIOVASCULAR: Regular rate and rhythm without murmurs, gallops, or rubs. RESPIRATORY: Breath sounds equal bilaterally. No accessory muscle use. GASTROINTESTINAL: Abdomen soft, non-tender, nondistended. MUSCULOSKELETAL: No cyanosis, or edema. BACK: Nontender without obvious deformity. No CVA tenderness. A/P Problem List: (1) Cardiac arrest with ventricular fibrillation ICD Code: I46.9 Status: Acute (2) STEMI (ST elevation myocardial infarction) ICD Code: I21.3 Status: Acute (3) Nonobstructive atherosclerosis of coronary artery ICD Code: I70.91 Status: Acute (4) Diabetes mellitus, type II ICD Code: E11.9 Status: Acute Assessment and Plan 52-year-old man with ST elevation PR Cardiac arrest due to ventricular fibrillation Nonobstructive atherosclerosis of coronary artery Status post emergent catheterization 05/23/17 Appreciate input from cardiology Awaiting for electrophysiology for evaluation for possible external defibrillator placement today 05/25/17 Continue with IV amiodarone Pending 2-D echo Hyperlipidemia LDL 118 Start Lipitor 10 mg at bedtime pending LFTs Diabetes type 2 Continue sliding scale insulin hemoglobin A1c pending DVT prophylaxis: SCDs Discharge Planning Discharge pending evaluation from electrophysiology as well as clearance from cardiology Gray Hudson MD May 25, 2017 08:07
[2017-05-25 09:12] LABS: INDIRECT BILIRUBIN 0.5 MG/DL (0.0-0.8); TOTAL BILIRUBIN ADULT 0.6 MG/DL (0.2-1.0)
[2017-05-25] MEDS ORDERED: PROPOFOL 200 MG/20 ML AMP IV ONE (09:24)
--- NOTE | 2017-05-25 12:51 | ECHRPT ---
Indication: CAD CONCLUSIONS The left ventricular systolic function is low normal with an estimated ejection fraction in the rang e of 50- 55%. Moderate concentric left ventricular hypertrophy. Doppler parameters are consistent with a pseudonormal left ventricular filling pattern with concomin ant abnormal relaxation and increased filling pressure (grade 2 diastolic dysfunction). Trace mitral valve regurgitation. There is trace tricuspid valve regurgitation. BP: / HR: Rhythm: MEASUREMENTS (Male / Female) Normal Values Technical Quality:Good 2D ECHO LV Diastolic Diameter PLAX 4.0 cm 4.2 - 5.9 / 3.9 - 5.3 cm LV Systolic Diameter PLAX 3.2 cm IVS Diastolic Thickness 1.5 cm 0.6 - 1.0 / 0.6 - 0.9 cm LVPW Diastolic Thickness 1.8 cm 0.6 - 1.0 / 0.6 - 0.9 cm LV Relative Wall Thickness 0.8 RV Internal Dim ED PLAX 3.0 cm M-MODE Aortic Root Diameter MM 3.2 cm LA Systolic Diameter MM 3.9 cm LA Ao Ratio MM 1.2 AV Cusp Separation MM 2.4 cm DOPPLER Mitral E Point Velocity 71.6 cm/s Mitral A Point Velocity 58.2 cm/s Mitral E to A Ratio 1.2 LV E' Lateral Velocity 4.8 cm/s Mitral E to LV E' Lateral Ratio 14.8 LV E' Septal Velocity 7.9 cm/s Mitral E to LV E' Septal Ratio 9.1 TR Peak Velocity 194.5 cm/s TR Peak Gradient 15.1 mmHg FINDINGS LEFT VENTRICLE Normal left ventricular size. Moderate concentric left ventricular hypertrophy. The left ventricular systolic function is low normal with an estimated ejection fraction in the rang e of 50- 55%. Doppler parameters are consistent with a pseudonormal left ventricular filling pattern with concomin ant abnormal relaxation and increased filling pressure (grade 2 diastolic dysfunction). RIGHT VENTRICLE Normal right ventricular size and systolic function. LEFT ATRIUM The left atrial size is upper limits of normal. RIGHT ATRIUM The right atrial size is normal. ATRIAL SEPTUM Normal atrial septal thickness without atrial level shunting by limited color doppler interrogation. AORTA The aortic root and proximal ascending aorta are normal in size on limited imaging. MITRAL VALVE Structurally normal mitral valve. Trace mitral valve regurgitation. No mitral valve stenosis. AORTIC VALVE Trileaflet aortic valve. Aortic valve sclerosis is present. No aortic valve regurgitation. No aortic valve stenosis. TRICUSPID VALVE Structurally normal tricuspid valve. There is trace tricuspid valve regurgitation. The estimated pulmonary arterial pressure is 25__ mmHg. PULMONARY VALVE The pulmonary valve is not well visualized. VESSELS The inferior vena cava is normal in size. PERICARDIUM Trivial vs physiologic pericardial effusion noted (normal finding) Foreign Jolley DO (Electronically Signed) Final Date:25 May 2017 12:50
--- NOTE | 2017-05-25 13:14 | MB ---
cc: HERNAN DELACRUZ M.D. DATE OF CONSULTATION: 05/25/2017 REASON FOR CONSULTATION Sudden ventricular fibrillation. HISTORY OF PRESENT ILLNESS Mr. Craig is a 52-year-old gentleman with history of type 2 diabetes mellitus, very active gentleman, lost over 20 pounds in the past 3 months exercising every day, biking around 40 miles a day. The patient was at the movie theater on the and collapsed. He was found in ventricular fibrillation. He received two defibrillatory shock. He was resuscitated and brought to the emergency room. He was admitted. A left heart catheterization by Dr. Herrmann indicated no occlusion, normal ejection fraction. I was consulted for evaluation and management. The chart was reviewed. The patient was evaluated. ALLERGIES PENICILLIN. SOCIAL HISTORY The gentleman is negative for smoking. Drinks occasionally. FAMILY HISTORY There is some strong family history of cardiomyopathy. MEDICATIONS The patient is currently on: 1. Lipitor. 2. He is on insulin sliding scale. 3. He is on Zofran. 4. He is on Restoril. 5. He is on amiodarone IV. REVIEW OF SYSTEMS Currently he refers no chest pain, no chest discomfort. No palpitation. No fever. PHYSICAL EXAMINATION GENERAL: Alert, fully oriented. VITAL SIGNS: His blood pressure is 147/83, pulse 70, respiratory rate 18. LUNGS: Ventilated. CARDIOVASCULAR: S1-S2, no gallop. No murmur. ABDOMEN: Soft. No mass, no bruit. EXTREMITIES: No edema. EKG Electrocardiogram shows sinus rhythm, left axis, diffuse ST changes. That was on electrocardiogram on admission. There is no other electrocardiogram since hospitalization. LABORATORY DATA Hemoglobin is 13.1, potassium 3.6, creatinine 1.05, troponin 0.10. HDL is 42, LDL 118. ASSESSMENT AND RECOMMENDATIONS Mr. Barrientos had an episode of sudden . There is no coronary artery disease, no clear sign of channelopathy. No long QT. Left heart catheterization showed no occlusion. The gentleman will need a defibrillator for sudden secondary prevention. At the same time he is concerned about ____ arrhythmia. After long conversation with the , I decided also to proceed with electrophysiology study and device insertion. The risks, the nature and the benefit of the procedure are clearly stated to him and his and his daughter. The risks include pneumothorax, cardiac perforation, stroke and even . He understood and agreed to proceed. Procedure will be performed in the morning. MD PHYLLIS Rodriguez/CHRISTINA /11:30 AM /12:57 PM
[2017-05-25] MEDS: AMIODARONE INJ 450 MG in D5W (EXCEL BAG) 241 ML IV SCH (14:06)
[2017-05-25 17:16] LABS: HEMOGLOBIN A1a 1.2 %; HEMOGLOBIN A1b 1.9 %; HEMOGLOBIN Ao 83.1 %; HEMOGLOBIN LA1C 2.4 %; HEMOGLOBIN P3 4.5 %
[2017-05-25] MEDS ORDERED: ATORVASTATIN 10 MG TAB PO SCH (21:00)
[2017-05-25] MEDS ORDERED: NOVOINJ3 (21:59)
[2017-05-25] MEDS ORDERED: NOVOINJ3 SQ (22:07)
[2017-05-26] VITALS (26 sets, daily range): BP systolic 138–152; BP diastolic 69–86; PULSE 58–70; RESP 16–19; TEMP 98.2–98.8; O2SAT 97–98
[2017-05-26] MEDS ORDERED: POVIDONE IODINE 5% (ANTISEPSIS KIT) 4 APPLICATIONS EACH NARE PRN (02:00)
[2017-05-26] MEDS ORDERED: CHLORHEXIDINE GLUCONATE 2 % 1 PACK (2 CLOTHS) TOPICAL PRN (02:00)
[2017-05-26] MEDS ORDERED: LACTATED RINGER'S 1000 ML IV PRN (02:00)
[2017-05-26] MEDS ORDERED: SODIUM CHLORID 0.9% 500 ML IV PRN (02:00)
[2017-05-26] MEDS: INSULIN ASPART SUPPLEMENTAL SCALE SQ SCH ×4 (06:19→20:40)
[2017-05-26] MEDS: AMIODARONE INJ 450 MG in D5W (EXCEL BAG) 241 ML IV SCH (06:53)
[2017-05-26] MEDS ORDERED: MIDAZOLAM HCL 2 MG/2 ML VIAL ONE (07:42)
[2017-05-26] MEDS ORDERED: ISOPROTERENOL HCL 1 MG/5 ML AMP ONE (07:43)
[2017-05-26] MEDS ORDERED: SODIUM CHLOR 0.9% 250 ML INJ 250 ML ONE ×2 (08:19→08:38)
[2017-05-26] MEDS ORDERED: LIDOCAINE HCL 2% 50 ML VIAL ONE (08:38)
[2017-05-26] MEDS ORDERED: VANCOMYCIN HCL 1000 MG VIAL ONE (08:38)
[2017-05-26] MEDS ORDERED: VANCOMYCIN 500 MG VIAL ONE (08:38)
--- NOTE | 2017-05-26 08:46 | CATHPROC ---
[employer] HIS Report Study Information Study Number Scheduled Start Study Start 11 05/26/2017 May 26 2017 7:24AM Referring Institution Admit Source Facility Department 1 Other [facility] - [facility] Specialist Physician and Clinical Staff Initial Haider Mcallister Commis Chef Essie Abreu,RT(R) TECH2 Commis Chef Ramos Fleming,RT(R) Other Anesthesia, SUPERVISOR WOUND Recorder Jill White,RN Recorder Agatha Galarza BSRN Scrub Polina Rosales RCIS TECH2 Equipment Time Stake Setter Description Size Mfg Part Number Used/Scraped [id number] 07:41 [employer] PACK, CCL CUSTOM * Used *[id number] 07:41 [employer] PACER BILLINGS, LIMB * 2530 *[id number] Used [id number] 07:41 [employer],WARM AIR CCL * Used *[id number] 08:04 [employer] CATHE[employer], JSN, QUAD FR 5 Used *[id number] 08:04 [employer] CATHE[employer], JSN, QUAD FR 5 Used *[id number] 08:04 [employer] CATHE[employer], JSN, QUAD FR 5 Used *[id number] 08:04 [employer] CATHETER, JSN, QUAD FR 5 Used *[id number] 07:41 [employer] ELECTRODE KIT, RUBIN X SURFACE * [id number] Used [id number] 08:03 [employer] SHEATH, EPS, FR5 FAST CATH FR 5 Used *[id number] 08:03 [employer] SHEATH, EPS, FR5 FAST CATH FR 5 Used *[id number] 08:03 [employer] SHEATH, EPS, FR5 FAST CATH FR 5 Used *[id number] 08:03 [employer] SHEATH, EPS, FR6 FAST CATH FR [address] [id number] Used 08:03 [employer] SHEATH, EPS, FR8 FAST CATH FR 8 [id number] Used [facility] PAD, ELECTROSURGICAL 07:41 * [id number] *[id number] Used SURGICAL GROUNDING (BLUE) History: Allergies Allergy Reaction Penicillin Labs Hgb (g/dl) Hct (%) RBC (MIL/MM3) WBC (l/cumm) Platelets (thousands) 11.60-17.00 35.00-51.00 4.00-5.90 4.00-11.00 150.00-450.00 13.0 39 4.4 9.9 244 Glucose (mg/dl) BUN (mg/dl) Creatinine (mg/dl) BUN:Creatinine (1:x) 74.00-106.00 7.00-18.00 0.50-1.30 10.00-20.00 182 25 1.0 25 Na (meq/l) K (meq/l) 136.00-145.00 3.50-5.10 137 3.6 INR (PTT:PT) 0.90-1.10 1 Medication Medication Total Dose (Bolus/Oral) Medication Total Dosage/Unit 1% XYLOCAINE 20 mL Medications (Bolus/Oral) Medication Time Given Dosage/Unit Administered By Reason 1% XYLOCAINE 05/26/2017 8:06:58 AM 20 mL Haider Jimenez 20 mL 1% XYLOCAINE given in lab by Haider Jimenez in Right Groin via Subcutaneous. Medication (Drip) Medication Time Given Dosage/Unit Concentration/Unit Diluent (ml) Solution ISUPREL 05/26/2017 8:23:29 AM 4 mcg/min 1 mg 250 NaCl .9 4 mcg/min ISUPREL given in lab by Paula, SUPERVISOR WOUND via Peripheral IV. Pump/Drip Flow = 60 ml/hr using NaCl .9 with a concentration of 1 mg in 250 ml. Ordered by Haider Jimenez. Reason: As per physicians verbal order. Initial Case Assessment Cardiovascular HR NIBP Chest Pain 66 153/86 0 Edema Present Skin color Skin None Normal Warm Dry Circulatory - Right Pulses Dorsalis Pedis 3 Scale (0,1,2,3,4,d) Circulatory - Left Pulses Dorsalis Pedis 3 Scale (0,1,2,3,4,d) Circulatory - Lower Extremities Color Lower Right Color Lower Left Normal Normal Neurological State Oriented to time-place- Alert Moves all extremities person Respiration - General Respiration Rate SpO2 (%) (B/min) 18 96 Chronological Log Time Study Chronological Log 7:24:39 Patient arrived via Bed. 7:24:40 Patient Name, D.O.B, / Armband Verified By R.N. 7:24:40 Consent signed by the physician and the patient and verified by the Front End Alignment Specialist staff. 7:24:41 Pre-op and post- op instructions given; patient acknowledges understanding of instructions. 7:24:42 Verbal Stimulation=2 Physical Stimulation=2 Airway=2 Respiration=2 TOTAL=8. (0=absent, 1=li mited, 2=present) 7:24:44 Patient has been NPO for More than 6Hrs. 7:24:45 Skin Breakdown- none per pt Assessment: Initial Case, HR=66 BPM, WWFG=191/86 mmhg, Chest Pain=0, Edema=None, Color=Normal, Skin = Warm, Dry Right Pulses: Hector Ped=3 Left Pulses: Hector Ped=3 7:31:07 Lower Right Extremities: Color=Normal Lower Left Extremities: Color=Normal Neurological: State=Alert, Ox3, JOHNSON Respiration: Resp=18 B/min, SpO2=96 % 7:34:58 Patient Warmer Placed on the Table. 7:34:59 Disposable Defibrillator Pads Placed On Patient. 7:35:00 James Prominences Protected 7:35:01 A # 20 IV was noted in the Wrist (left). Grade = 0 Amiodarone 0.5mg/min infusion 7:35:02 A # 20 IV was noted in the Forearm (right). Grade = 0 0.9ns kvo 7:35:06 History and physical on the chart or being dictated. 7:35:56 Anesthesia at bedside. Assumes care of patient. Pola 7:40:45 Table restraints applied according to hospital policy 7:42:12 Bilateral groins prepped with 2% chlorhexidine, and with a 3 min. waiting time. 7:52:44 Reference ECG taken Time Out. Correct patient, procedure, procedure equipment, site and side verified with physician present. Time 8:06:00 concurred by MD, individual staff and SUPERVISOR WOUND. Time Out #2 - Consents verified, patient in correct position, all results are labled and display ed, safety precautions 8:06:23 taken, antibiotics administered. Time out concurred by MD, individual staff and SUPERVISOR WOUND in procedur e 8:06:48 Case Start 8:06:58 20 mL 1% XYLOCAINE given in lab by Haider Jimenez in Right Groin via Subcutaneous. 8:07:31 Vascular access was obtained in the Fem Vein (right). 8:07:32 Vascular access was obtained in the Fem Vein (right). 8:07:33 Vascular access was obtained in the Fem Vein (right). 8:07:49 Vascular access was obtained in the Fem Vein (right). 8:09:25 A SHEATH, EPS, FR5 FAST CATH FR 5 was advanced into the Fem Vein (right) using the Modified Seldinger technique. 8:09:40 A SHEATH, EPS, FR5 FAST CATH FR 5 was advanced into the Fem Vein (right) using the Modified Seldinger technique. 8:09:46 A SHEATH, EPS, FR5 FAST CATH FR 5 was advanced into the Fem Vein (right) using the Modified Seldinger technique. 8:10:18 A SHEATH, EPS, FR6 FAST CATH FR 6 was advanced into the Fem Vein (right) using the Modified Seldinger technique. A CATHETER, JSN, QUAD FR 5 was advanced vis Fem Vein (right) and placed in the CS. Placement was visually 8:11:45 confirmed under fluoroscopy. A CATHETER, JSN, QUAD FR 5 was advanced vis Fem Vein (right) and placed in the HIS. Placement wa s visually 8:11:58 confirmed under fluoroscopy. A CATHETER, JSN, QUAD FR 5 was advanced vis Fem Vein (right) and placed in the RVA. Placement wa s visually 8:13:20 confirmed under fluoroscopy. A CATHETER, JSN, QUAD FR 5 was advanced vis Fem Vein (right) and placed in the HRA. Placement wa s visually 8:13:25 confirmed under fluoroscopy. 8:13:36 EPS in progress. 4 mcg/min ISUPREL given in lab by Anesthesia, SUPERVISOR WOUND via Peripheral IV. Pump/Drip Flow = 60 ml/hr using NaCl .9 with 8:23:29 a concentration of 1 mg in 250 ml. Ordered by Haider Jimenez. Reason: As per physicians verbal or barb. 8:30:30 Isuprel off 8:30:52 Catheter(s) removed without difficulty 8:31:05 Sheath(s) left in place, sutured, 0.9ns kvo connected and will be removed in Holding Area 8:43:18 Case End 8:43:28 Sterile dressings applied to site. 8:43:35 No case complications noted. 8:44:23 Cine recording checked. 8:44:40 Bedside Report will be given. 8:44:48 Patient now being prepped on table for insertion of an ICD End Study - Contrast Media Used In Study Contrast Total Opened (mL) Total Used (mL) Total Wasted (mL) Unspecified 0 0 0 End Study - Maximum Contrast Load Max Contrast Load (mL) 409.1 End Study - Radiation Exposure Fluoro Time (minutes) 1.6 End Study - Patient Disposition Complications Transferred To Interventional Outcome No Telemetry Bed successful
[2017-05-26] MEDS ORDERED: LEVOFLOXACIN 500 MG PREMIX INJ 100 ML IV ONE (08:55)
--- NOTE | 2017-05-26 09:59 | PD.CARD ---
SINGLE CHAMBER DEFIB IMPLANT PROCEDURE DATE: May 26, 2017 Prevention: Secondary Single Chamber Defib Implant PROCEDURE: Single chamber defibrillator implantation and device testing. INDICATIONS: Mr. Barrientos is a 52 -year-old male with episode of sudden , ventricular fibrillation who undergo defibrillator implantation for sudden prevention secondary prevention. The risks, the nature and the benefit of the procedure are clearly stated to him . Risks include pneumothorax, cardiac perforation, stroke and even . He understood and agreed to proceed. PROCEDURE: As written, informed consent was obtained, the patient was brought to the EP Lab where he was prepped and draped in the sterile fashion. Conscious sedation was initiated and maintained throughout the procedure by anesthesiologist. Once sedation was verified, the left infraclavicular area was anesthetized with 2% Xylocaine. Using modified Seldinger technique, the left subclavian vein was cannulated on one occasion and one guide wire was advanced. Then, using #11 blade scalpel, a 3-cm incision was made two fingerbreadths below left clavicle. This incision was then taken down to the deep fascial layer using Bovie cautery and blunt dissection. Into the inferomedial direction, a device pocket was dissected, then the wire was dissected into the pocket. A 2-0 Vicryl suture was placed around the wires to prevent bleeding. At this point, over the wire, the 8- Turkish dilator and introducer was advanced. As dilator and wire were removed, an active fixation right ventricular pacing, sensing and defibrillatory lead was advanced. After adequate pacing and sensing thresholds were obtained, the lead was secured in the pocket with #2 Ethibond suture. At that point, the pocket was copiously irrigated with antibiotic solution. The leads were connected to the generator and placed into the pocket. I did proceed with NIPS. Initial induction consisted of T-wave shock which induced ventricular fibrillation which was adequately detected and treated by the ICD generator, delivering a 20-joule defibrillatory shock converting the patient back into sinus rhythm. Shocking impedance was 56 ohms, charge time 4.0 seconds. At that point NIPS was complete. I did proceed with wound closure. The deep fascial layer was approximated with 2-0 Vicryl suture in a continuous fashion. The subcutaneous layer was approximated with 2-0 Vicryl suture in a continuous fashion. The subcuticular layer was approximated with 2-0 Vicryl suture in a continuous fashion. Dermabond adhesive was applied to the wound, followed by a sterile pressure dressing. There was no complication. The patient tolerated procedure. Blood loss minimal. 1. Implanted Hardware: The implanted defibrillator generator is a [employer], model number 220725, serial number [id number]. The right ventricular pacing, sensing and defibrillatory lead is a [employer] model number 357044, serial number [id number]. 2. Thresholds: The right ventricular pacing threshold in the bipolar mode was 0.8 volts at 0.5 milliseconds, lead impedance 650 ohms and R-wave at 24.3 mV. sensing P wave @ 3.1mv. The right ventricular defibrillatory threshold less than 20 joules shocking, impedance 56 ohms, charge time 4.0 seconds. 3. Settings: The device set in VVI 40 defibrillatory portion for two zones, one zone for ventricular tachycardia between 190 and 250 beats per minute. Initial therapy consists of one burst of ATP, one ramp, 81%, 10 pulse, 10 millisecond decremental, followed by 20, then 30 and all subsequent shocks at 40 joules defibrillatory shock, the second zone for ventricular fibrillation above 250 beats per minute, first therapy at 30 and all subsequent shocks at 40 joules defibrillatory shock. CONCLUSIONS: Successful defibrillator implantation and device testing. COMMENT AND RECOMMENDATIONS: The patient will be transferred to the telemetry unit, will be observed and when stable can be discharged home. Haider Jimenez MD May 26, 2017 09:59
[2017-05-26] MEDS ORDERED: ONDANSETRON HCL 4 MG/2 ML VIAL IV PRN (10:00)
[2017-05-26] MEDS ORDERED: oxyCODONE/ACETAMINOPHEN 5 MG/325 MG TAB PO PRN (10:00)
[2017-05-26] MEDS: oxyCODONE/ACETAMINOPHEN 5 MG/325 MG TAB PO PRN ×2 (10:29→20:10)
--- NOTE | 2017-05-26 10:30 | MA ---
cc: HERNAN DELACRUZ M.D. DATE: 05/26/2017 PROCEDURE: Electrophysiology study, CS cannulation, repeat electrophysiology study on Isuprel infusion. HISTORY: Mr. Barrientos is a 52-year-old gentleman with history of diabetes mellitus, very active, a episode of sudden who underwent a electrophysiology study. The risks, the nature and the benefit of the procedure are clearly stated to him. The risks include pneumothorax, cardiac perforation, stroke and even . The patient understood and agreed to proceed. PROCEDURE After written informed consent was obtained, the patient was brought to the EP lab where he was prepped and draped in the usual sterile fashion. Conscious sedation was initiated and maintained throughout the procedure by anesthesiologist. Once sedation verified, the right inguinal area was at 2% Xylocaine. Using modified Seldinger technique, the right femoral vein was cannulated on four occasion four guidewire were advanced over the wire, a 3, 5 and a 6-Monegasque Hemaquet were advanced. Then under fluoroscopic guidance through the 5-Monegasque Hemaquet, four 5-Monegasque [place] curved quadripolar electrophysiology catheter were advanced was on the his, the upper right atrium coronary sinus and right ventricular apex. Basic interval were measured all within normal limits. At this point atrial pacing protocol was performed atrial pacing protocol consists of incremental atrial pacing as well as program stimulation with 110 cycle length and up 20 excess stimuli delivered. No tachyarrhythmia was induced. Then ventricular pacing protocol was performed. There was no VA conduction ventricular pacing protocol course of incremental ventricular pacing as well as program stimulation with 110 cycle length and up to 3 volts stimuli delivered. No tachyarrhythmia was induced. The patient was on IV amiodarone for the past 3-4 days. Wenckebach was very high. Then Isuprel was initially initiated four mics. Atrial and ventricular pacing protocol was repeated again no tachyarrhythmia was induced post Isuprel no tachyarrhythmia was induced. At that point procedure was complete. All catheters were removed. The patient going to be kept on the table because of episode of sudden and ventricular fibrillation and no motor arrhythmia was induced. The patient going to be kept on the table and a single chamber defibrillator will be implanted for sudden , secondary prevention. No incident report. The patient tolerated procedure blood loss minimal. Electrocardiogram; baseline the patient was in sinus postprocedure electrocardiogram was unchanged. Basic interval base cycle length was around 980, AH was 100, HV was around 46 milliseconds. Atrial pacing protocol Wenckebach of the AV node at baseline was around 534 mm a 40 milliseconds. No tachyarrhythmia was induced and ventricular pacing protocol there was no VA at baseline and Isuprel no tachyarrhythmia was induced. CONCLUSION Negative electrophysiology study for supra and ventricular tachyarrhythmia. COMMENTS/RECOMMENDATIONS Mr. Barrientos as ventricular fibrillation requiring cardial defibrillation twice. A single chamber defibrillator will be implanted for sudden secondary prevention. MD PHYLLIS Rodriguez/carlo /9:50 AM /10:11 AM
--- NOTE | 2017-05-26 10:48 | RADRPT ---
EXAM DATE/TIME: 05/26/2017 10:23 [facility] COMPARISON: CHEST SINGLE AP, May 23, 2017, 19:05. INDICATIONS : Post defibrillator placement; evaluate for pneumothorax. MEDICAL HISTORY : Hypertension. Pancreatitis. SURGICAL HISTORY : Cardiac cath. ENCOUNTER: Subsequent ACUITY: 1 day PAIN SCORE: 0/10 LOCATION: Bilateral chest FINDINGS: A single view of the chest demonstrates pacer lead overlying right ventricle. Cardiomegaly. No pneumo thorax or significant effusion. Dependent atelectasis in the lungs.. CONCLUSION: 1. Pacer lead tip overlies right ventricle. No pneumothorax or effusion. James Herrmann MD on May 26, 2017 at 10:45 Board Certified Radiologist. This report was verified electronically.
--- NOTE | 2017-05-26 13:13 | HHI.PR ---
Subjective Remarks resting comfortably with no distress. denies chest pain or sob. has mild pain at the site of the procedure. Objective Vitals Vital Signs Date Time Temp Pulse Resp B/P Pulse Ox O2 Delivery O2 Flow Rate FiO2 05/26/17 12:14 17 05/26/17 12:00 62 05/26/17 11:00 98.8 61 17 138/86 98 05/26/17 11:00 61 05/26/17 10:00 60 05/26/17 09:56 98.7 69 17 152/85 98 05/26/17 07:00 58 05/26/17 06:00 61 05/26/17 05:00 62 05/26/17 04:00 59 05/26/17 03:00 60 05/26/17 03:00 98.5 67 16 138/82 97 05/26/17 02:00 61 05/26/17 01:00 66 05/26/17 00:00 62 05/25/17 23:20 98.5 66 18 154/84 97 05/25/17 23:00 65 05/25/17 22:00 68 05/25/17 21:00 65 05/25/17 20:00 98.7 67 18 145/89 99 05/25/17 20:00 66 05/25/17 19:00 69 05/25/17 18:00 65 05/25/17 17:00 64 05/25/17 16:00 70 05/25/17 15:00 98.6 70 17 147/87 98 05/25/17 15:00 68 05/25/17 14:00 68 I/O 05/25/17 05/25/17 05/25/17 05/26/17 05/26/17 05/26/17 07:00 15:00 23:00 07:00 15:00 23:00 Intake Total 187 ml 720 ml 418 ml Output Total 350 ml 700 ml 450 ml Balance -163 ml 20 ml -32 ml Intake Oral 720 ml 240 ml IV Total 187 ml 178 ml Output Urine Total 350 ml 700 ml 450 ml # Voids 1 1 # Bowel Movements 1 1 Result Diagram: 05/24/17 1047 05/24/17 1047 Imaging Last Impressions Chest X-Ray 05/26/17 0000 Signed Impressions: Service Date/Time: Friday, May 26, 2017 10:23 - CONCLUSION: 1. Pacer lead tip overlies right ventricle. No pneumothorax or effusion. James Herrmann MD Objective Remarks GENERAL: This is a well-nourished, well-developed patient, in no apparent distress. CARDIOVASCULAR: Regular rate and regular rhythm without murmurs, gallops, or rubs. RESPIRATORY: Clear to auscultation. Breath sounds equal bilaterally. No wheezes , rales, or rhonchi. GASTROINTESTINAL: Abdomen soft, non-tender, nondistended. Normal, active bowel sounds MUSCULOSKELETAL: Extremities without clubbing, cyanosis, or edema. NEURO: Alert & Oriented x4 to person, place, time, situation. Moves all ext x4 Procedures cardiac cath. EP study/ AICD placement. Medications and IVs Current Medications Sodium Chloride (NS 1000 ml Inj) 1,000 ml @ 0 mls/hr Q0M ONCE IV Last administered on 05/23/17 19:24; Start 05/23/17 at 19:04; Stop 05/23/17 at 19:06 ; Status DC Sodium Chloride (NS Flush) 2 ml UNSCH PRN IVF FLUSH AFTER USING IV ACCESS; Start 05/23/17 at 19:15 Aspirin (Aspirin Chew) 324 mg NOW STAT PO Last administered on 05/23/17 19:24 ; Start 05/23/17 at 19:04; Stop 05/23/17 at 19:06; Status DC Nitroglycerin 0.4 mg 0.4 mg NOW STAT SL Last administered on 05/23/17 19:25; Start 05/23/17 at 19:04; Stop 05/23/17 at 19:06; Status DC Nitroglycerin/ Dextrose (Nitroglycerin-Dextrose Inj) 250 ml @ 0 mls/hr TITRATE IV Last administered on 05/23/17 19:25; Start 05/23/17 at 19:15 Heparin Sodium (Porcine) 5400 units 5,400 units NOW STAT IV Last administered on 05/23/17 19:24; Start 05/23/17 at 19:04; Stop 05/23/17 at 19:06; Status DC Heparin Sodium/ Sodium Chloride (Heparin-NS/Pf Inj) 500 ml @ As Directed STK- MED ONCE .ROUTE ; Start 05/23/17 at 19:34; Stop 05/23/17 at 19:35; Status DC Midazolam HCl (Versed Inj) 2 mg STK-MED ONCE .ROUTE Last administered on 19:35; Start 05/23/17 at 19:35; Stop 05/23/17 at 19:36; Status DC Fentanyl Citrate (fentaNYL INJ) 100 mcg STK-MED ONCE .ROUTE Last administered on 05/23/17 19:35; Start 05/23/17 at 19:35; Stop 05/23/17 at 19:36; Status DC Heparin Sodium (Porcine) 65037 units 10,000 units STK-MED ONCE .ROUTE ; Start at 19:35; Stop 05/23/17 at 19:36; Status DC Nitroglycerin (Nitroglycerin Inj) 5 ml @ As Directed STK-MED ONCE .ROUTE ; Start 05/23/17 at 19:36; Stop 05/23/17 at 19:37; Status DC Bivalirudin 250 mg 250 mg STK-MED ONCE .ROUTE ; Start 05/23/17 at 19:36; Stop at 19:37; Status DC Heparin Sodium/ Sodium Chloride (Heparin-NS/Pf Inj) 500 ml @ As Directed STK- MED ONCE .ROUTE Last administered on 05/23/17 19:51; Start 05/23/17 at 19:51; Stop 05/23/17 at 19:52; Status DC Atropine Sulfate (Atropine Inj) 0.5 mg UNSCH PRN IV VAGAL REPONSE; Start at 20:15 Ondansetron HCl 4 mg 4 mg Q4H PRN IV NAUSEA; Start 05/23/17 at 20:15; Stop 05/26 at 01:42; Status DC Amiodarone HCl 150 mg/Dextrose 100 ml @ 600 mls/hr NOW ONCE IV Last administered on 05/23/17 21:50; Start 05/23/17 at 21:30; Stop 05/23/17 at 21:39 ; Status DC Amiodarone HCl/ Dextrose (Cordarone Inj/ D5W ([place]) Inj) 250 ml @ 0 mls/hr CONTINUOUS IV Last administered on 05/26/17 06:53; Start 05/23/17 at 21:30; Stop 05/26/17 at 10:02; Status DC Dextrose (D50w (Vial) Inj) 50 ml UNSCH PRN IV HYPOGLYCEMIA-SEE COMMENTS; Start 05/24/17 at 08:30 Glucagon (Glucagon Inj) 1 mg UNSCH PRN OTHER HYPOGLYCEMIA-SEE COMMENTS; Start 05/24/17 at 08:30 Insulin Aspart (NovoLOG SUPPLEMENTAL SCALE) 1 ACHS SLIDING SCALE SQ Last administered on 05/25/17 20:52; Start 05/24/17 at 11:00 Acetaminophen (Tylenol) 650 mg Q4H PRN PO Temp > 100.4; Start 05/24/17 at 08:30 Ondansetron HCl (Zofran Inj) 4 mg Q6H PRN IV NAUSEA; Start 05/24/17 at 08:30; Stop 05/26/17 at 10:19; Status DC Docusate Sodium (Colace) 100 mg BID PRN PO CONSTIPATION; Start 05/24/17 at 08: 30 Temazepam (Restoril) 15 mg HS PRN PO INSOMNIA; Start 05/24/17 at 08:30 Acetaminophen/ Hydrocodone Bitart ([place] 5-325 Mg) 1 tab Q4H PRN PO pain2-5; Start 05/24/17 at 08:30; Stop 05/26/17 at 10:19; Status DC Acetaminophen/ Hydrocodone Bitart ([place] 7.5-325 Mg) 1 tab Q4H PRN PO pain>5 Last administered on 05/24/17 21:41; Start 05/24/17 at 08:30; Stop 05/26/17 at 10:19; Status DC Morphine Sulfate (Morphine Inj) 2 mg Q6H PRN IV PUSH BREAKTHROUGH PAIN Last administered on 05/26/17 12:09; Start 05/24/17 at 08:30 Iohexol (OMNIPAQUE 350 INJ (Client Experience Consultant)) 50 ml STK-MED ONCE OTHER ; Start at 19:25; Stop 05/25/17 at 07:20; Status DC Atorvastatin Calcium 10 mg 10 mg HS PO Last administered on 05/25/17 20:50; Start 05/25/17 at 21:00 Lactated Ringer's 1,000 ml @ 30 mls/hr Q24H PRN IV SEE LABEL COMMENTS; Start at 02:00; Stop 05/29/17 at 01:59 Sodium Chloride (NS 500 ml Inj) 500 ml @ 30 mls/hr [id number] PRN IV SEE LABEL COMMENTS; Start 05/26/17 at 02:00; Stop 05/29/17 at 01:59 Povidone Iodine (Betadine 5% Antisepsis Kit) 1 applic DEFENSIVE SECONDARY COACH PRN EACH NARE SEE LABEL COMMENTS; Start 05/26/17 at 02:00; Stop 05/29/17 at 01:59 Chlorhexidine Gluconate (Chlorhexidine 2% Cloth) 3 pack DEFENSIVE SECONDARY COACH PRN TOPICAL SEE LABEL COMMENTS; Start 05/26/17 at 02:00; Stop 05/29/17 at 01:59 Fentanyl Citrate (fentaNYL INJ) 100 mcg STK-MED ONCE .ROUTE ; Start 05/26/17 at 07:42; Stop 05/26/17 at 07:43; Status DC Midazolam HCl (Versed Inj) 2 mg STK-MED ONCE .ROUTE ; Start 05/26/17 at 07:42; Stop 05/26/17 at 07:43; Status DC Isoproterenol HCl 1 mg 1 mg STK-MED ONCE .ROUTE ; Start 05/26/17 at 07:43; Stop 05/26/17 at 07:44; Status DC Sodium Chloride (NS 250 ml Inj) 250 ml @ As Directed STK-MED ONCE .ROUTE ; Start 05/26/17 at 08:19; Stop 05/26/17 at 08:20; Status DC Vancomycin HCl (Vancomycin Inj) 500 mg STK-MED ONCE .ROUTE Last administered on 05/26/17 08:48; Start 05/26/17 at 08:38; Stop 05/26/17 at 08:39; Status DC Vancomycin HCl (Vancomycin Inj) 1,000 mg STK-MED ONCE .ROUTE ; Start 05/26/17 at 08:38; Stop 05/26/17 at 08:39; Status DC Lidocaine HCl 50 ml 50 ml STK-MED ONCE .ROUTE ; Start 05/26/17 at 08:38; Stop 05/26/17 at 08:39; Status DC Sodium Chloride 250 ml @ As Directed STK-MED ONCE .ROUTE ; Start 05/26/17 at 08: 38; Stop 05/26/17 at 08:39; Status DC Levofloxacin/ Dextrose (Levaquin 500 Mg Premix Inj) 100 ml @ As Directed STK- MED ONCE IV Last administered on 05/26/17 08:58; Start 05/26/17 at 08:55; Stop 05/26/17 at 08:56; Status DC Ondansetron HCl (Zofran Inj) 4 mg Q4H PRN IV NAUSEA; Start 05/26/17 at 10:00 Oxycodone/ Acetaminophen (Percocet 5-325 Mg) 1 tab Q4H PRN PO PAIN SCALE 1 TO 4 Last administered on 05/26/17 10:29; Start 05/26/17 at 10:00 Oxycodone/ Acetaminophen (Percocet 5-325 Mg) 2 tab Q4H PRN PO PAIN SCALE 5 TO 10; Start 05/26/17 at 10:00 Propofol (Diprivan 200 Mg/20 ml Inj) 200 mg STK-MED ONCE IV ; Start 05/25/17 at 09:24; Stop 05/26/17 at 10:32; Status DC A/P Assessment and Plan A/P ST elevation [place] Cardiac arrest due to ventricular fibrillation Nonobstructive atherosclerosis of coronary artery Status post emergent catheterization s/p EP study/ AICD placement echo with EF 50%, LVH and grade 2 diastolic dysfunction cardiology following Hyperlipidemia LDL 118 Started Lipitor 10 mg at bedtime pending LFTs Diabetes type 2 Continue sliding scale insulin hemoglobin A1c 6.5 DVT prophylaxis: SCDs Discharge Planning when cleared by cardiology. Emperatriz Mathews MD May 26, 2017 13:13
--- NOTE | 2017-05-26 13:54 | EKG ---
Date Performed: 05/25/2017 Time Performed: 20:54:38 PTAGE: 52 years EKG: Sinus rhythm Left axis deviation Possible septal infarct - age undetermined Left ventricular hypertrophy Inferior /lateral ST-T changes may be due to hypertrophy and/or ischemia Since previous tracing, no significan t change noted Abnormal ECG PREVIOUS TRACING : 05/23/2017 18.58 DOCTOR: Darian Zazueta Interpretating Date/Time 05/26/2017 13:52:22
[2017-05-27] VITALS (14 sets, daily range): BP systolic 137–144; BP diastolic 75–86; PULSE 58–68; RESP 18; TEMP 98.2; O2SAT 96
[2017-05-27] MEDS: INSULIN ASPART SUPPLEMENTAL SCALE SQ SCH ×2 (06:28→11:00)
--- NOTE | 2017-05-27 07:26 | PD.CARD.PN ---
Subjective Subjective Remarks Feels okay. Objective Medications Current Medications Medications (Trade) Dose Ordered Sig/Max Route Start Time Stop Time Status Last Admin Sodium Chloride 2 ml 2 ml UNSCH PRN IVF 05/23/17 19:15 05/26/17 20:18 (Nitroglycerin-Dextrose Inj) 250 ml @ 0 mls/hr TITRATE IV 05/23/17 19:15 05/23/17 19:25 (Atropine Inj) 0.5 mg UNSCH PRN IV 05/23/17 20:15 (D50w (Vial) Inj) 50 ml UNSCH PRN IV 05/24/17 08:30 (Glucagon Inj) 1 mg UNSCH PRN OTHER 05/24/17 08:30 (Tylenol) 650 mg Q4H PRN PO 05/24/17 08:30 (Colace) 100 mg BID PRN PO 05/24/17 08:30 (Restoril) 15 mg HS PRN PO 05/24/17 08:30 (Morphine Inj) 2 mg Q6H PRN IV PUSH 05/24/17 08:30 05/26/17 12:09 Atorvastatin Calcium 10 mg 10 mg HS PO 05/25/17 21:00 Hold 05/25/17 20:50 Lactated Ringer's 1,000 ml @ 30 mls/hr Q24H PRN IV 05/26/17 02:00 05/29/17 01:59 (NS 500 ml Inj) 500 ml @ 30 mls/hr [id number] PRN IV 05/26/17 02:00 05/29/17 01:59 (Zofran Inj) 4 mg Q4H PRN IV 05/26/17 10:00 (Percocet 5-325 Mg) 1 tab Q4H PRN PO 05/26/17 10:00 05/26/17 20:10 (Percocet 5-325 Mg) 2 tab Q4H PRN PO 05/26/17 10:00 Vital Signs / I&O Vital Signs Date Time Temp Pulse Resp B/P Pulse Ox O2 Delivery O2 Flow Rate FiO2 05/27/17 06:12 64 05/27/17 05:37 60 05/27/17 04:00 62 05/27/17 03:36 98.2 60 18 144/79 96 05/27/17 03:00 68 05/27/17 02:00 66 05/27/17 01:00 60 05/27/17 00:00 58 05/26/17 23:45 98.4 61 16 138/69 98 05/26/17 23:00 68 05/26/17 22:00 60 05/26/17 21:00 60 05/26/17 20:00 60 05/26/17 19:45 98.2 70 19 145/83 97 05/26/17 19:00 68 05/26/17 18:00 65 05/26/17 17:00 66 05/26/17 16:00 68 05/26/17 15:23 98.6 63 17 140/81 97 05/26/17 15:00 66 05/26/17 14:00 67 05/26/17 13:00 63 05/26/17 12:14 17 05/26/17 12:00 62 05/26/17 11:00 98.8 61 17 138/86 98 05/26/17 11:00 61 05/26/17 10:00 60 05/26/17 09:56 98.7 69 17 152/85 98 I/O 05/26/17 05/26/17 05/26/17 05/27/17 05/27/17 05/27/17 07:00 15:00 23:00 07:00 15:00 23:00 Intake Total 418 ml 1250 ml 480 ml Output Total 450 ml 1200 ml Balance -32 ml 50 ml 480 ml Intake Oral 240 ml 1000 ml 480 ml IV Total 178 ml 250 ml Output Urine Total 450 ml 1200 ml # Voids 1 # Bowel Movements 1 Physical Exam GENERAL: Well-nourished, well-developed patient. SKIN: Warm and dry. Left chest wall incision well approximated without erythema or drainage. HEAD: Normocephalic. EYES: No scleral icterus. No injection or drainage. NECK: Supple, trachea midline. No JVD or lymphadenopathy. CARDIOVASCULAR: Regular rate and rhythm without murmurs, gallops, or rubs. RESPIRATORY: Breath sounds equal bilaterally. No accessory muscle use. GASTROINTESTINAL: Abdomen soft, non-tender, nondistended. EXTREMITIES: No cyanosis, or edema. NEUROLOGICAL: Awake, alert, and oriented x 3. Non-focal. Imaging Last Impressions Chest X-Ray 05/26/17 0000 Signed Impressions: Service Date/Time: Friday, May 26, 2017 10:23 - CONCLUSION: 1. Pacer lead tip overlies right ventricle. No pneumothorax or effusion. James Herrmann MD Assessment and Plan Problem List: (1) Cardiac arrest with ventricular fibrillation Assessment and Plan: No recurrent ventricular arrhythmias seen on telemetry. Required defibrillation twice for V. fib. 2-D echocardiogram shows EF 50-55%, grade 2 diastolic dysfunction. He requires implantation of an ICD for sudden cardiac prevention. (2) S/P ICD (internal cardiac defibrillator) procedure Assessment and Plan: Device function appropriate, chest x-ray shows no pneumothorax or effusion. Stable for discharge home when cleared by managing team from an EP standpoint. Follow-up with Dr. Jimenez in 2 weeks. Levaquin 500 mg daily 3 days per my discussion with Dr. Jimenez. Blanca Bennett May 27, 2017 07:26
[2017-05-27] MEDS ORDERED: LEVOFLOXACIN 500 MG TAB PO SCH (09:00)
--- NOTE | 2017-05-27 09:05 | EKG ---
Date Performed: 05/27/2017 Time Performed: 03:18:10 PTAGE: 52 years EKG: Sinus rhythm Left axis deviation Lateral T wave changes may be due to myocardial ischemia Abnormal ECG NO PREVIOUS TRACING DOCTOR: Celio Grewal Interpretating Date/Time 05/27/2017 09:03:31
[2017-05-27] MEDS ORDERED: LEVA500T20 PO (09:32)
--- NOTE | 2017-05-27 09:33 | HHI.DCPOC ---
Discharge Care Plan Diagnosis: (1) Ventricular fibrillation Additional Problems cardiac arrest. Goals to Promote Your Health * To prevent worsening of your condition and complications * To maintain your health at the optimal level Directions to Meet Your Goals Take your medications as prescribed Follow your dietary instruction Follow activity as directed Keep your appointments as scheduled Take your immunizations and boosters as scheduled If your symptoms worsen call your PCP, if no PCP go to Urgent Care Center or Emergency Room Smoking is Dangerous to Your Health. Avoid second hand smoke Call the 24-hour hour crisis hotline for domestic abuse at Emperatriz Mathews MD May 27, 2017 09:33
--- NOTE | 2017-05-27 09:40 | HHI.PR ---
Subjective Remarks resting comfortably with no distress. no chest pain or sob. has mild discomfort at the site of procedure. no other new complaints. d/w the RN. Objective Vitals Vital Signs Date Time Temp Pulse Resp B/P Pulse Ox O2 Delivery O2 Flow Rate FiO2 05/27/17 06:12 64 05/27/17 05:37 60 05/27/17 04:00 62 05/27/17 03:36 98.2 60 18 144/79 96 05/27/17 03:00 68 05/27/17 02:00 66 05/27/17 01:00 60 05/27/17 00:00 58 05/26/17 23:45 98.4 61 16 138/69 98 05/26/17 23:00 68 05/26/17 22:00 60 05/26/17 21:00 60 05/26/17 20:00 60 05/26/17 19:45 98.2 70 19 145/83 97 05/26/17 19:00 68 05/26/17 18:00 65 05/26/17 17:00 66 05/26/17 16:00 68 05/26/17 15:23 98.6 63 17 140/81 97 05/26/17 15:00 66 05/26/17 14:00 67 05/26/17 13:00 63 05/26/17 12:14 17 05/26/17 12:00 62 05/26/17 11:00 98.8 61 17 138/86 98 05/26/17 11:00 61 05/26/17 10:00 60 05/26/17 09:56 98.7 69 17 152/85 98 I/O 05/26/17 05/26/17 05/26/17 05/27/17 05/27/17 05/27/17 06:59 14:59 22:59 06:59 14:59 22:59 Intake Total 418 ml 1250 ml 480 ml Output Total 450 ml 1200 ml Balance -32 ml 50 ml 480 ml Intake Oral 240 ml 1000 ml 480 ml IV Total 178 ml 250 ml Output Urine Total 450 ml 1200 ml # Voids 1 # Bowel Movements 1 Result Diagram: 05/24/17 1047 05/24/17 1047 Imaging Last Impressions Chest X-Ray 05/26/17 0000 Signed Impressions: Service Date/Time: Friday, May 26, 2017 10:23 - CONCLUSION: 1. Pacer lead tip overlies right ventricle. No pneumothorax or effusion. James Herrmann MD Objective Remarks GENERAL: This is a well-nourished, well-developed patient, in no apparent distress. CARDIOVASCULAR: Regular rate and regular rhythm without murmurs, gallops, or rubs. RESPIRATORY: Clear to auscultation. Breath sounds equal bilaterally. No wheezes , rales, or rhonchi. GASTROINTESTINAL: Abdomen soft, non-tender, nondistended. Normal, active bowel sounds MUSCULOSKELETAL: Extremities without clubbing, cyanosis, or edema. NEURO: Alert & Oriented x4 to person, place, time, situation. Moves all ext x4 Procedures cardiac cath. EP study/ AICD placement. Medications and IVs Current Medications Sodium Chloride (NS 1000 ml Inj) 1,000 ml @ 0 mls/hr Q0M ONCE IV Last administered on 05/23/17 19:24; Start 05/23/17 at 19:04; Stop 05/23/17 at 19:06 ; Status DC Sodium Chloride (NS Flush) 2 ml UNSCH PRN IVF FLUSH AFTER USING IV ACCESS Last administered on 05/26/17 20:18; Start 05/23/17 at 19:15 Aspirin (Aspirin Chew) 324 mg NOW STAT PO Last administered on 05/23/17 19:24 ; Start 05/23/17 at 19:04; Stop 05/23/17 at 19:06; Status DC Nitroglycerin 0.4 mg 0.4 mg NOW STAT SL Last administered on 05/23/17 19:25; Start 05/23/17 at 19:04; Stop 05/23/17 at 19:06; Status DC Nitroglycerin/ Dextrose (Nitroglycerin-Dextrose Inj) 250 ml @ 0 mls/hr TITRATE IV Last administered on 05/23/17 19:25; Start 05/23/17 at 19:15 Heparin Sodium (Porcine) 5400 units 5,400 units NOW STAT IV Last administered on 05/23/17 19:24; Start 05/23/17 at 19:04; Stop 05/23/17 at 19:06; Status DC Heparin Sodium/ Sodium Chloride (Heparin-NS/Pf Inj) 500 ml @ As Directed STK- MED ONCE .ROUTE ; Start 05/23/17 at 19:34; Stop 05/23/17 at 19:35; Status DC Midazolam HCl (Versed Inj) 2 mg STK-MED ONCE .ROUTE Last administered on 19:35; Start 05/23/17 at 19:35; Stop 05/23/17 at 19:36; Status DC Fentanyl Citrate (fentaNYL INJ) 100 mcg STK-MED ONCE .ROUTE Last administered on 05/23/17 19:35; Start 05/23/17 at 19:35; Stop 05/23/17 at 19:36; Status DC Heparin Sodium (Porcine) 42721 units 10,000 units STK-MED ONCE .ROUTE ; Start at 19:35; Stop 05/23/17 at 19:36; Status DC Nitroglycerin (Nitroglycerin Inj) 5 ml @ As Directed STK-MED ONCE .ROUTE ; Start 05/23/17 at 19:36; Stop 05/23/17 at 19:37; Status DC Bivalirudin 250 mg 250 mg STK-MED ONCE .ROUTE ; Start 05/23/17 at 19:36; Stop at 19:37; Status DC Heparin Sodium/ Sodium Chloride (Heparin-NS/Pf Inj) 500 ml @ As Directed STK- MED ONCE .ROUTE Last administered on 05/23/17 19:51; Start 05/23/17 at 19:51; Stop 05/23/17 at 19:52; Status DC Atropine Sulfate (Atropine Inj) 0.5 mg UNSCH PRN IV VAGAL REPONSE; Start at 20:15 Ondansetron HCl 4 mg 4 mg Q4H PRN IV NAUSEA; Start 05/23/17 at 20:15; Stop 05/26 at 01:42; Status DC Amiodarone HCl 150 mg/Dextrose 100 ml @ 600 mls/hr NOW ONCE IV Last administered on 05/23/17 21:50; Start 05/23/17 at 21:30; Stop 05/23/17 at 21:39 ; Status DC Amiodarone HCl/ Dextrose (Cordarone Inj/ D5W ([place]) Inj) 250 ml @ 0 mls/hr CONTINUOUS IV Last administered on 05/26/17 06:53; Start 05/23/17 at 21:30; Stop 05/26/17 at 10:02; Status DC Dextrose (D50w (Vial) Inj) 50 ml UNSCH PRN IV HYPOGLYCEMIA-SEE COMMENTS; Start 05/24/17 at 08:30 Glucagon (Glucagon Inj) 1 mg UNSCH PRN OTHER HYPOGLYCEMIA-SEE COMMENTS; Start 05/24/17 at 08:30 Insulin Aspart (NovoLOG SUPPLEMENTAL SCALE) 1 ACHS SLIDING SCALE SQ Last administered on 05/26/17 20:40; Start 05/24/17 at 11:00 Acetaminophen (Tylenol) 650 mg Q4H PRN PO Temp > 100.4; Start 05/24/17 at 08:30 Ondansetron HCl (Zofran Inj) 4 mg Q6H PRN IV NAUSEA; Start 05/24/17 at 08:30; Stop 05/26/17 at 10:19; Status DC Docusate Sodium (Colace) 100 mg BID PRN PO CONSTIPATION; Start 05/24/17 at 08: 30 Temazepam (Restoril) 15 mg HS PRN PO INSOMNIA; Start 05/24/17 at 08:30 Acetaminophen/ Hydrocodone Bitart ([place] 5-325 Mg) 1 tab Q4H PRN PO pain2-5; Start 05/24/17 at 08:30; Stop 05/26/17 at 10:19; Status DC Acetaminophen/ Hydrocodone Bitart ([place] 7.5-325 Mg) 1 tab Q4H PRN PO pain>5 Last administered on 05/24/17 21:41; Start 05/24/17 at 08:30; Stop 05/26/17 at 10:19; Status DC Morphine Sulfate (Morphine Inj) 2 mg Q6H PRN IV PUSH BREAKTHROUGH PAIN Last administered on 05/26/17 12:09; Start 05/24/17 at 08:30 Iohexol (OMNIPAQUE 350 INJ (Proofreader)) 50 ml STK-MED ONCE OTHER ; Start at 19:25; Stop 05/25/17 at 07:20; Status DC Atorvastatin Calcium 10 mg 10 mg HS PO Last administered on 05/25/17 20:50; Start 05/25/17 at 21:00; Status Hold Lactated Ringer's 1,000 ml @ 30 mls/hr Q24H PRN IV SEE LABEL COMMENTS; Start at 02:00; Stop 05/29/17 at 01:59 Sodium Chloride (NS 500 ml Inj) 500 ml @ 30 mls/hr [id number] PRN IV SEE LABEL COMMENTS; Start 05/26/17 at 02:00; Stop 05/29/17 at 01:59 Povidone Iodine (Betadine 5% Antisepsis Kit) 1 applic DIGITAL TRAFFIC COORDINATOR PRN EACH NARE SEE LABEL COMMENTS; Start 05/26/17 at 02:00; Stop 05/29/17 at 01:59 Chlorhexidine Gluconate (Chlorhexidine 2% Cloth) 3 pack DIGITAL TRAFFIC COORDINATOR PRN TOPICAL SEE LABEL COMMENTS; Start 05/26/17 at 02:00; Stop 05/29/17 at 01:59 Fentanyl Citrate (fentaNYL INJ) 100 mcg STK-MED ONCE .ROUTE ; Start 05/26/17 at 07:42; Stop 05/26/17 at 07:43; Status DC Midazolam HCl (Versed Inj) 2 mg STK-MED ONCE .ROUTE ; Start 05/26/17 at 07:42; Stop 05/26/17 at 07:43; Status DC Isoproterenol HCl 1 mg 1 mg STK-MED ONCE .ROUTE ; Start 05/26/17 at 07:43; Stop 05/26/17 at 07:44; Status DC Sodium Chloride (NS 250 ml Inj) 250 ml @ As Directed STK-MED ONCE .ROUTE ; Start 05/26/17 at 08:19; Stop 05/26/17 at 08:20; Status DC Vancomycin HCl (Vancomycin Inj) 500 mg STK-MED ONCE .ROUTE Last administered on 05/26/17t 08:48; Start 05/26/17 at 08:38; Stop 05/26/17 at 08:39; Status DC Vancomycin HCl (Vancomycin Inj) 1,000 mg STK-MED ONCE .ROUTE ; Start 05/26/17 at 08:38; Stop 05/26/17 at 08:39; Status DC Lidocaine HCl 50 ml 50 ml STK-MED ONCE .ROUTE ; Start 05/26/17 at 08:38; Stop 05/26/17 at 08:39; Status DC Sodium Chloride 250 ml @ As Directed STK-MED ONCE .ROUTE ; Start 05/26/17 at 08: 38; Stop 05/26/17 at 08:39; Status DC Levofloxacin/ Dextrose (Levaquin 500 Mg Premix Inj) 100 ml @ As Directed STK- MED ONCE IV Last administered on 05/26/17 08:58; Start 05/26/17 at 08:55; Stop 05/26/17 at 08:56; Status DC Ondansetron HCl (Zofran Inj) 4 mg Q4H PRN IV NAUSEA; Start 05/26/17 at 10:00 Oxycodone/ Acetaminophen (Percocet 5-325 Mg) 1 tab Q4H PRN PO PAIN SCALE 1 TO 4 Last administered on 05/26/17 20:10; Start 05/26/17 at 10:00 Oxycodone/ Acetaminophen (Percocet 5-325 Mg) 2 tab Q4H PRN PO PAIN SCALE 5 TO 10; Start 05/26/17 at 10:00 Propofol (Diprivan 200 Mg/20 ml Inj) 200 mg STK-MED ONCE IV ; Start 05/25/17 at 09:24; Stop 05/26/17 at 10:32; Status DC Levofloxacin (Levaquin) 500 mg DAILY PO Last administered on 05/27/17 08:53; Start 05/27/17 at 09:00; Stop 05/29/17 at 08:59 A/P Assessment and Plan A/P ST elevation [place] Cardiac arrest due to ventricular fibrillation Nonobstructive atherosclerosis of coronary artery Status post emergent catheterization s/p EP study/ AICD placement echo with EF 50%, LVH and grade 2 diastolic dysfunction cardiology follow-up appreciated and cleared for discharge from EP standpoint. Hyperlipidemia LDL 118 statin on hold due to elevated LFT's f/u as outpatient Diabetes type 2 Continue sliding scale insulin hemoglobin A1c 6.5 DVT prophylaxis: SCDs Discharge Planning dc home today. f/u; pcp and cardiology. see med list. d/w the patient and RN. Emperatriz Mathews MD May 27, 2017 09:40
--- NOTE | 2017-05-27 09:42 | HHI.DS ---
Discharge Summary Admission Date May 23, 2017 at 19:50 Discharge Date: May 27, 2017 Admitting Diagnosis STEMI (1) Cardiac arrest with ventricular fibrillation ICD Code: I46.9 Diagnosis: Principal (2) Nonobstructive atherosclerosis of coronary artery ICD Code: I70.91 Diagnosis: Principal (3) Diabetes mellitus, type II ICD Code: E11.9 Diagnosis: Secondary Procedures cardiac cath. EP study/ AICD placement. Brief History - From Admission 52-year-old male with a history of diabetes type 2 was brought to the ED yesterday by EMS after patient having sudden [place]. Initially patient received CPR, and when EMS was call patient was found to be in ventricular fibrillation for which he received 2 shocks and was successfully resuscitated. Patient was there with him state patient may have passed out for more than 20 minutes. Patient denies any symptoms of chest pain, shortness of breath, heart palpitation or dizziness leading to his collapse. The ED, patient was found to be ST elevation LA for which he was started on heparin and nitroglycerin drip. Cardiology was call secondary to STEMI alert. During my exam, patient appears stable and denies any chest pain or heart palpitation. He had a prior episode of chest pain in 2005 for which he had a negative stress test. CBC/BMP: 05/24/17 1047 05/24/17 1047 Significant Findings Laboratory Tests Test 05/24/17 05/25/17 10:47 05:01 Red Blood Count 4.41 MIL/MM3 (4.50-5.90) Monocytes (%) (Auto) 9.7 % (0.0-8.0) Monocytes # (Auto) 1.0 TH/MM3 (0-0.9) Blood Urea Nitrogen 25 MG/DL (7-18) Estimat Glomerular Filtration 75 ML/MIN (>89) Rate Random Glucose 182 MG/DL (74-106) Calcium Level 8.4 MG/DL (8.5-10.1) Hemoglobin A1c 6.5 % (4.3-6.0) Aspartate Amino Transf 68 U/L (15-37) (AST/SGOT) Alanine Aminotransferase 135 U/L (12-78) (ALT/SGPT) Total Protein 6.3 GM/DL (6.4-8.2) Albumin 3.2 GM/DL (3.4-5.0) Triglycerides Level 155 MG/DL (42-150) LDL Cholesterol 118 MG/DL (0-99) Imaging Last Impressions Chest X-Ray 05/26/17 0000 Signed Impressions: Service Date/Time: Friday, May 26, 2017 10:23 - CONCLUSION: 1. Pacer lead tip overlies right ventricle. No pneumothorax or effusion. James Herrmann MD PE at Discharge GENERAL: This is a well-nourished, well-developed patient, in no apparent distress. CARDIOVASCULAR: Regular rate and regular rhythm without murmurs, gallops, or rubs. RESPIRATORY: Clear to auscultation. Breath sounds equal bilaterally. No wheezes , rales, or rhonchi. GASTROINTESTINAL: Abdomen soft, non-tender, nondistended. Normal, active bowel sounds MUSCULOSKELETAL: Extremities without clubbing, cyanosis, or edema. NEURO: Alert & Oriented x4 to person, place, time, situation. Moves all ext x4 Hospital Course Cardiac arrest due to ventricular fibrillation Nonobstructive atherosclerosis of coronary artery Status post emergent catheterization s/p EP study/ AICD placement echo with EF 50%, LVH and grade 2 diastolic dysfunction cardiology follow-up appreciated and cleared for discharge from EP standpoint. Hyperlipidemia LDL 118 statin on hold due to elevated LFT's f/u as outpatient Diabetes type 2 Continue sliding scale insulin hemoglobin A1c 6.5 DVT prophylaxis: SCDs Pt Condition on Discharge: Stable Discharge Disposition: Discharge Home Discharge Time: <= 30 minutes Discharge Instructions DIET: Follow Instructions for: Heart Healthy Diet, Diabetic Diet Activities you can perform: Regular-No Restrictions Follow up Referrals: Cardiology PCP Follow-up New Medications: Levofloxacin (Levaquin) 500 Mg Tablet 500 MG PO DAILY antibiotic Days 2 Ref 0 TAB Continued Medications: Insulin Aspart Inj (Novolog Flexpen Inj) 300 Unit/3 Ml Pen Unknown Dose SQ Blood Sugar Management #1 Ref 0 PEN Emperatriz Mathews MD May 27, 2017 09:42
--- NOTE | 2017-05-27 11:44 | EKG ---
Date Performed: 05/26/2017 Time Performed: 10:56:08 PTAGE: 52 years EKG: Sinus bradycardia Left axis deviation Possible anteroseptal infarct - age undetermined Left ventricular hypertrophy Lateral ST-T changes may be due to hypertrophy and/or ischemia Abnormal ECG NO PREVIOUS TRACING DOCTOR: Celio Grewal Interpretating Date/Time 05/27/2017 11:42:53
--- NOTE | 2017-05-28 14:32 | CATHPROC ---
[facility] HIS Report Study Information Study Number Admission Scheduled Start Study Start [id number] 05/26/2017 05/26/2017 May 26 2017 8:49AM Referring Institution Admit Source Facility Department 1 Other [facility] Automobile Upholsterer Apprentice Physician and Clinical Staff Initial Haider Mcallister [place] Operator Essie Abreu,RT(R) TECH2 Other Jill White RN Other Anesthesia, LOG STACKER OPERATOR Recorder Agatha Galarza,YANIRARN Scrub Polina Rosales,JUNE TECH2 Procedures Performed Procedure Lead Insertion Equipment Time Test Borer Helper Description Size Mfg Part Number Used/Scraped DEFIBRILLATOR, IMPERIA 7 VR-T 09:13 BIOTRONIK [id number] Used DX MRI 09:12 BIOTRONIK LEAD, PLEXA PRO-MRI DF 65/15 [id number] Used DERMABOND, ADHESIVE SKIN [id number] 08:54 CORDIS/PACER * Used GLUE MINI *[id number]-1103 08:54 MEDLINE INDUSTRIES SUTURE, STRIP PLUS 1/2" * Used *[id number] 08:54 MEDLINE PACER BILLINGS, LIMB * 2530 *[id number] Used [id number] 08:54 MEDLINE PACER PACK, PACER CUSTOM * Used *[id number] 09:11 Klutch PACER SAFE SHEATH, FR8, 13CM FR 8 [id number] Used 08:58 Needle Sponge Count 2 22 Used 09:18 Needle Sponge Count 2 22 Used 09:19 Needle Sponge Count 2 22 Used 09:19 Needle Sponge Count 20 200 Used 09:18 Needle Sponge Count 20 200 Used 08:58 Needle Sponge Count 20 200 Used 08:58 Needle Sponge Count 3 3 Used 09:18 Needle Sponge Count 3 3 Used 09:19 Needle Sponge Count 3 3 Used SUTURE, 0 ETHIBOND [CT1] (CX21D), 8pk SUTURE, 2-0 VICRYL [CT1] (UEF111D) SUTURE, 2-0 VICRYL [CT1] (RDT501R) [id number] 08:54 [employer],WARM AIR CCL * Used *[id number] [facility] PAD, ELECTROSURGICAL 08:54 * [id number] *[id number] Used SURGICAL GROUNDING ORANGE [id number] 08:54 [employer]. ELECTRODE, PRO-PADZ BIPHASIC * Used *[id number] Equipment Model, Serial, Lot Number and Expiration Data Description Model Number Serial Number Lot Number Expiration Date DEFIBRILLATOR, IMPERIA 7 VR-T [id number] 04-24-2018 DX MRI LEAD, PLEXA PRO-MRI DF 65/15 [id number] 03-25-2019 History: Current Medications Medication Dosage/Unit Route Frequency Last Date/Time Taken Insulin History: Allergies Allergy Reaction Penicillin Medication Medication Total Dose (Bolus/Oral) Medication Total Dosage/Unit 2% XYLOCAINE 50 mL Medications (Bolus/Oral) Medication Time Given Dosage/Unit Administered By Reason 2% XYLOCAINE 05/26/2017 9:04:22 AM 50 mL Haider Jimenez For pain 50 mL 2% XYLOCAINE given in lab by Haider Jimenez via Subcutaneous. Ordered by Haider Jimenez. Reason: For pain. left upper chest Medication (Drip) Medication Time Given Dosage/Unit Concentration/Unit Diluent (ml) Solution LEVAQUIN 05/26/2017 8:58:00 AM 500 mL/hr 500 100 NaCl .9 500 mL/hr LEVAQUIN given in lab by GENARO Mitchell in Right Antecubital via Peripheral IV. Pump/Drip Flow = 0 ml/hr using NaCl .9 with a concentration of 500 in 100 ml. Ordered by Haider Jimenez. Reason: As per physicians verbal order. VANCOMYCIN DRIP 05/26/2017 8:48:00 AM 1 g 1 g VANCOMYCIN DRIP given in lab by Jill White RN in Right Antecubital via Peripheral IV. Orde red by Haider Jimenez. Reason: As per physicians verbal order. Final Case Assessment Cardiovascular HR NIBP Chest Pain 62 102/60 0 Edema Present Skin color Skin None Normal Warm Dry Neurological State Oriented to time-place- Alert Moves all extremities person Chronological Log Time Study Chronological Log 8:47:00 Initial procedure has been completed. Beginning additional procedure. 1 g VANCOMYCIN DRIP given in lab by Jill White RN in Right Antecubital via Peripheral I V. Ordered by Barbara 8:48:00 Haider. Reason: As per physicians verbal order. 8:56:41 Anesthesia remains at bedside. Pola LOG STACKER OPERATOR 8:57:05 Presedation re-assessment performed by Automobile Upholsterer Apprentice RN. 8:57:06 2% CHLORHEXIDINE GLUCONATE WASH AND NASAL SWIPE DONE PRIOR TO PROCEDURE. 8:57:19 Pre-procedure assessment data was performed with the previous procedure. First Sponge And Instrument Count Done by Jill White RN. 8:57:28 Hypo's: 3, Sponges: 20, Bovie/scratch: 2 Sutures: 10, Blades: 1, Instruments: 26, Syveck Patches: 0 500 mL/hr LEVAQUIN given in lab by Anesthesia, LOG STACKER OPERATOR in Right Antecubital via Peripheral IV. Pu mp/Drip Flow = 0 8:58:00 ml/hr using NaCl .9 with a concentration of 500 in 100 ml. Ordered by Haider Jimenez. Reason : As per physicians verbal order. 9:03:11 Immediate Presedation assesment performed by physician. Time Out. Correct patient, procedure, procedure equipment, site and side verified with physici an present. Time 9:03:54 concurred by MD, individual staff and LOG STACKER OPERATOR. Time Out #2 - Consents verified, patient in correct position, all results are labled and displ ayed, safety precautions 9:03:59 taken, antibiotics administered. Time out concurred by MD, individual staff and LOG STACKER OPERATOR in proced ure 9:04:01 Case Start 50 mL 2% XYLOCAINE given in lab by Haider Jimenez via Subcutaneous. Ordered by Haider Jimenez. Kay son: For pain. 9:04:22 left upper chest 9:06:27 Vascular access was obtained in the Subclav. Vein (Lft. 9:08:18 Surgical Incision Made. 9:08:21 A pocket was created at the L Upper Chest. 9:08:35 A SAFE SHEATH, FR8, 13CM FR 8 was advanced into the Subclav. Vein (Lft using the Percutaneou s technique. 9:12:58 A LEAD, PLEXA PRO-MRI DF 65/15 was inserted and positioned in the RV. 9:13:08 Lead placement verified under fluoroscopy 9:13:10 The RV lead impedance and threshold being tested. 9:13:12 The RV lead was sutured to the fascia. 9:15:02 Pocket flushed with antibiotic solution 9:15:06 A DEFIBRILLATOR, IMPERIA 7 VR-T DX MRI was connected and placed in the pocket. Second Sponge And Instrument Count Done by Essie Abreu, RT(R) TECH2. 9:17:25 Hypo's: 3, Sponges: 20, Bovie/scratch: 2 Sutures: ~SUTURE~, Blades: 1, Instruments: ~INSTRU~, Syveck Patches: ~SYVECK PATCH~ 9:18:14 The pocket was closed. 9:18:20 Implant Procedure was performed. 9:18:32 A ICD Implant . (Single) 9:21:18 A two Joul DFT was performed. 9:21:34 The DFT was Success at 20 Joules, 53 Ohms lead impedance and 4000 ms charge time. The Final Sponge And Instrument Count Done by Essie Abreu, RT(R) TECH2. 9:24:00 Hypo's: 3, Sponges: 20, Bovie/scratch: 2 Sutures: 10, Blades: 1, Instruments: 26, Syveck Patches: 0 9:24:39 A sling was placed on the affected arm. Assessment: Final Case, HR=62 BPM, BHKX=443/60 mmhg, Chest Pain=0, Edema=None, Color=Normal, Ski n = Warm, 9:24:45 Dry Neurological: State=Alert, Ox3, JOHNSON 9:25:41 Sterile dressing applied to site 9:25:46 No case complications noted. 9:25:48 Cine recording checked. 9:25:55 Holding Area notified of successful intervention. 9:26:00 Bedside Report will be given. 9:26:01 Implantable Device card placed in patient's chart. 9:26:05 Defibrillator and ground pads removed. Skin intact. 9:30:00 Case End 9:40:00 Patient moved to [facility] and transported to [facility] in stable condition. End Study - Contrast Media Used In Study Contrast Total Opened (mL) Total Used (mL) Total Wasted (mL) Unspecified 0 0 0 End Study - Radiation Exposure Fluoro Time (minutes) 0.6 End Study - Patient Disposition Complications Transferred To Interventional Outcome No Telemetry Bed successful
== END 2017-05-27 12:32 | disposition home or self-care (01) | DRG 224 ==
LOC: NEPC 18:58 → NEDA 19:50 → HCIN 20:25
PROVIDERS: ADMIT Internal Medicine; ATTEND Internal Medicine
PROC: 4A023N7 Measurement of Cardiac Sampling and Pressure, Left Heart, Percutaneous Approach (ICD-10-PCS; 2017-05-23)
PROC: B2111ZZ Fluoroscopy of Multiple Coronary Arteries using Low Osmolar Contrast (ICD-10-PCS; 2017-05-23)
PROC: B2151ZZ Fluoroscopy of Left Heart using Low Osmolar Contrast (ICD-10-PCS; 2017-05-23)
PROC: B41F1ZZ Fluoroscopy of Right Lower Extremity Arteries using Low Osmolar Contrast (ICD-10-PCS; 2017-05-23)
PROC: 0JH608Z Insertion of Defibrillator Generator into Chest Subcutaneous Tissue and Fascia, Open Approach (ICD-10-PCS; 2017-05-26)
PROC: 4A023FZ Measurement of Cardiac Rhythm, Percutaneous Approach (ICD-10-PCS; 2017-05-26)
PROC: 4A0234Z Measurement of Cardiac Electrical Activity, Percutaneous Approach (ICD-10-PCS; 2017-05-26)
PROC: 4A02X4Z Measurement of Cardiac Electrical Activity, External Approach (ICD-10-PCS; 2017-05-26)
PROC: 4A02XFZ Measurement of Cardiac Rhythm, External Approach (ICD-10-PCS; 2017-05-26)
PROC: 02HK3KZ Insertion of Defibrillator Lead into Right Ventricle, Percutaneous Approach (ICD-10-PCS; principal; 2017-05-26 15:15)
DX: I49.01 Ventricular fibrillation (principal); I21.3 ST elevation (STEMI) myocardial infarction of unspecified site; R56.9 Unspecified convulsions; I25.119 Atherosclerotic heart disease of native coronary artery with unspecified angina pectoris; E78.5 Hyperlipidemia, unspecified; E11.9 Type 2 diabetes mellitus without complications; Z87.891 Personal history of nicotine dependence; Z83.3 Family history of diabetes mellitus; Z82.49 Family history of ischemic heart disease and other diseases of the circulatory system
CPT/HCPCS: 33249; 71010; 80048; 80061; 80076; 80307; 82310; 82435; 82550; 82565; 82947; 82948; 83036; 83735; 83880; 84132; 84295; 84484; 84520; 85007; 85025; 85027; 85610; 85730; 93005; 93306; 93458; 93620; 93623; 96374; 96375; C1722; C1730; C1732; C1760; C1769; C1777; C1887; C1893; G0269; J0282; J0583; J1644; J1815; J1956; J2250; J2270; J3010; J3370; J7030; J7050; J7060; Q9967